=== PATIENT | male | born 2000 | race Caucasian/White ===

== ENCOUNTER 2022-05-07 16:34 | Emergency (ER) | payer OTHER, SELFPAY ==
[2022-05-07 16:41] VITALS: BP 145/83; PULSE 99; RESP 16; TEMP 37.7; O2SAT 99
--- NOTE | 2022-05-07 19:25 | ED.URI ---
HPI - URI/Sore Throat General Chief Complaint: Upper Respiratory Infection Stated Complaint: Throat cough headache Time Seen by Provider: 05/07/22 19:25 Source: patient, RN notes reviewed and old records reviewed Mode of arrival: ambulatory Limitations: no limitations History of Present Illness HPI Narrative: 21 ear old male presents to [facility] with complaints of 4 day history of headache, sore throat,cough with some yellowish brownish phlegm at times, and low-grade fever. Patient reports that he has had COVID vaccinations X3, and flu shot, Patient reports that he was seen 3-4 weeks ago at [facility] urgent care and received steroid with negative strep at that time which did help his symptoms till past 4 days. He has taken Juan Jose RIOJAS elicited complaint: cough and sore throat Related Data Home Medications Medication Instructions Recorded Confirmed bupropion HCl 200 mg tablet,12 hr 200 mg PO BID 05/07/22 05/07/22 sustained-release dextroamphetamine-amphetamine ER 20 mg PO BID 05/07/22 05/07/22 20 mg 24hr capsule,extend release (Adderall XR) quetiapine 25 mg tablet 12.5 mg PO HS 05/07/22 05/07/22 Allergies Allergy/AdvReac Type Severity Reaction Status Date / Time No Known Allergies Allergy Verified 05/07/22 18:03 Review of Systems Review of Systems: CONSTITUTIONAL: Denies malaise, chills, sweats, or fever. EYES: Denies visual changes, redness, or discharge ENT: Reports rhinorrhea, congestion, sinus pain, no otalgia positive for sore throat. CARDIOVASCULAR: Denies chest pain, palpitations, or edema. RESPIRATORY: Reports cough.? Denies dyspnea. GASTROINTESTINAL: Denies abdominal pain, nausea, vomiting, diarrhea SKIN: Denies rash or itching. MUSCULOSKELETAL: Denies myalgia. NEUROLOGIC:Reports headache. All systems reviewed & are unremarkable except as noted in HPI and below PMFSH Past Medical History Medical History (Updated 05/11/22 @ 11:56 by Evelyn Lopez NP) ADHD (attention deficit hyperactivity disorder) Anxiety and depression Asthma as child Pre-diabetes Surgical History Surgical History (Updated 05/11/22 @ 11:50 by Evelyn Lopez NP) Hx of tonsillectomy S/P wisdom tooth extraction Social History Social History (Updated 05/11/22 @ 11:51 by Evelyn Lopez NP) Smoking status: Never smoker Alcohol intake: unknown Substance use type: does not use Gender identity (if verbalized by the patient): Male Comments At time of signature, agree with nursing past medical, surgical, social and family history. There is no relevant family history pertinent to the presenting complaint Exam Narrative: GENERAL: Well-appearing, well-nourished, and in no acute distress. HEAD: Normocephalic EYES: PERRLA, conjunctivae clear ENT: Nares clear, turbinates edematous and erythematous, clear discharge. Mucous membranes moist. TM pearly walter with dull light reflex bilaterally; no tragal tenderness. Oropharynx erythematous without lesions. Tonsils not present and throat without exudate, no drooling, no hoarseness, no trismus, uvula midline.post nasal drainage noted NECK: Supple. No lymphadenopathy CHEST: Clear to auscultation, breath sounds equal. No wheezing, rhonchi, rales, or stridor. No respiratory distress, speaks in full sentences.productive cough yellowish to brown phelgm, SAO2 99% on room air HEART: Regular rate and rhythm. No murmur heard. SKIN: Warm, dry, no rash. NEURO: Alert and oriented x3. PSYCH: Normal mood and affect Course Course Emergency Course: Patient is aware of diagnosis, understands and agrees to treatment plan.? Anticipatory guidance given.? Patient agrees to follow-up as directed and is aware of reasons to seek care at the emergency department. Portions of this record may have been created with voice recognition software Level of Care: Express Care Visit Vital Signs Vital signs: Vital Signs Temperature 37.7 C H 05/07/22 16:41 P
== END 2022-05-07 20:01 | disposition home or self-care (01) ==
PROVIDERS: Emergency Provider Registered Nurse; PCP Physician Assistant
DX: J02.9 Acute pharyngitis, unspecified (principal); R05.9 Cough, unspecified
CPT/HCPCS: 87081; 87804; 99213; G0463

== ENCOUNTER 2024-04-13 12:41 | Emergency (ER) | payer OTHER, SELFPAY ==
--- NOTE | ~2024-04-13 | XR_ITS ---
EXAMINATION: XR chest 2V 04/13/2024 13:53 INDICATION: Productive cough PROCEDURE: 2 view chest COMPARISON: No prior studies for comparison. FINDINGS: The lungs are clear. The cardiomediastinal silhouette is within normal limits. There are no pleural effusions. There is no pneumothorax suspected. IMPRESSION: 1: NO ACUTE CARDIOPULMONARY DISEASE. Reviewed, dictated and finalized at location B. VE SETTER SAF[employer]Y STITCH
[2024-04-13 12:48] VITALS: BP 144/75; PULSE 85; RESP 16; TEMP 37.4; O2SAT 100
[2024-04-13 12:53] VITALS: BP 144/75; PULSE 85; RESP 16; TEMP 37.4; O2SAT 100
--- NOTE | 2024-04-13 13:13 | ED_ITS ---
HPI - URI/Sore Throat General Chief Complaint: Upper Respiratory Infection Stated Complaint: Sore Throat Time Seen by Provider: 04/13/24 13:14 Source: patient, RN notes reviewed and old records reviewed Mode of arrival: ambulatory Limitations: no limitations History of Present Illness HPI Narrative: 23-year-old male to Express Care with complaint sore throat, runny nose, productive cough with odd tasting phlegm. Patient reports that his sister is currently Being treated for pneumonia. Patient denies fever, difficulty swallowing, shortness of breath, chest pain, allergies, pertinent medical history. Patient able to tolerate fluids by mouth. Patient resting comfortably in exam room in no acute distress. Related Data Home Medications Medication Instructions Recorded Confirmed fluticasone propionate 50 intranasal 04/13/24 mcg/actuation nasal spray,suspension lamotrigine 200 mg tablet mg 04/13/24 methylphenidate HCl 54 mg mg PO 04/13/24 tablet,extended release 24 hr (Concerta) propranolol 60 mg capsule,24 mg PO 04/13/24 hr,extended release Allergies Allergy/AdvReac Type Severity Reaction Status Date / Time No Known Allergies Allergy Verified 04/13/24 12:52 Review of Systems Review of Systems: All systems reviewed & are unremarkable except as noted in HPI and below Constitutional: Constitutional: Reports no additional constitutional complaints Eyes: Eyes: Reports no additional eye complaints ENT: Reports as per HPI, Reports nasal discharge and Reports sore throat Cardiovascular: Cardiovascular: Reports no additional cardiovascular complaints, Denies chest pain and Denies dyspnea Respiratory: Respiratory: Reports no additional respiratory complaints, Reports cough and Denies dyspnea Musculoskeletal: Musculoskeletal: Reports no additional musculoskeletal complaints Neurologic: Reports system reviewed and no additional complaints, except as documented Psychiatric: Psychiatric: Reports no additional psychiatric complaints [facility] Past Medical History Medical History ADHD (attention deficit hyperactivity disorder) Anxiety and depression Asthma as child Pre-diabetes Surgical History Surgical History Hx of tonsillectomy S/P wisdom tooth extraction Social History Social History Smoking status: Never smoker Alcohol intake: unknown Substance use type: does not use Living arrangements: with family Gender identity (if verbalized by the patient): Male Comments At the time of my signature, I reviewed and agree with the nursing past medical, surgical, social, and family history. There is no relevant family history pertinent to the patient complaint. Exam Const: General: cooperative, healthy appearing, no acute distress, alert, tired appearing and well nourished Nutritional Appearance: well nourished Orientation/consciousness: patient oriented x3 Limitations: no limitations HENMT: Head: normal to inspection Ears: external ears normal and TM abnormal bulging on the left, erythematous on the left, with fluid behind the TM on the left and with loss of landmarks on the left Face/Nose/Sinus: Normal external nose present, Normal nares present, normal facial exam, No erythema and No edema Face and sinus: normal facial exam, no erythema and no edema Mouth: Yes Normal oral and palatal mucosa present Throat: posterior oropharynx abnormal erythema and postnasal drainage Eyes: General: appearance normal, both eyes and all related structures Neck: Neck: normal visual inspection, full ROM and no meningeal signs Lymphatic: no lymphadenopathy noted and no lymphedema noted Chest: Chest palpation & inspection: normal inspection of the chest Resp: Effort & Inspection: normal respiratory effort and able to speak in complete sentences Auscultation: clear to auscultation bilaterally Cardio: Jugular venous distension: no JVD Rate: regular rate Rhythm: regular rhythm Back/Spine/Pelvis: Cervical Spine: cervical ROM normal Skin: General skin exam: normal color, no rashes or lesions noted and turgor normal Neuro: General: patient oriented x3, gait normal, moves all extremities and no meningeal signs Speech: normal speech Gait exam (Neuro): Normal gait present Extrem: General: normal to inspection, full ROM and capillary refill normal Psych: Appearance: grossly normal and well kempt Course Course Emergency Course: Some parts of this dictation were generated by voice recognition software and may contain typographical and/or grammatical inaccuracies. Level of Care: Express Care Visit Vital Signs Vital signs: Vital Signs Temperature 37.4 C 04/13/24 12:48 Pulse Rate 85 04/13/24 12:48 Respiratory Rate 16 04/13/24 12:48 Blood Pressure 144/75 H 04/13/24 12:48 Pulse Oximetry 100 04/13/24 12:48 Oxygen Delivery Room Air 04/13/24 12:48 Temperature 37.4 C 04/13/24 12:53 Pulse Rate 85 04/13/24 12:53 Respiratory Rate 16 04/13/24 12:53 Blood Pressure 144/75 H 04/13/24 12:53 Pulse Oximetry 100 04/13/24 12:53 Oxygen Delivery Room Air 04/13/24 12:53 reviewed MDM - URI/Sore Throat MDM Narrative Medical decision making narrative: 23-year-old male to Express Care with complaint sore throat, runny nose, productive cough with odd tasting phlegm. Patient reports that his sister is currently Being treated for pneumonia. Patient denies fever, difficulty swallowing, shortness of breath, chest pain, allergies, pertinent medical history. Patient able to tolerate fluids by mouth. Patient resting comfortably in exam room in no acute distress. On exam, left TM erythematous, bulging with fluid, loss of landmarks. Posterior oropharynx erythematous with postnasal drainage. Findings consistent with left otitis media. Patient negative COVID, flu, strep clinic. Culture sent for strep. Patient is sitting comfortably in exam room nontoxic in appearance. Patient appropriate for outpatient treatment and follow-up. Discharge instructions reviewed with patient, as well as provided in writing per nursing staff. The instructions also include specific and strict return/GO TO THE ER as well as f/u information. All questions have been answered, and the patient deny any further questions with discharge and discharge plan. Some parts of this dictation were generated by voice recognition software and may contain typographical and/or grammatical inaccuracies. Differential Diagnosis Differential diagnosis: Likely upper respiratory infection, croup, otitis media, sinusitis, viral infection, bronchitis, influenza and pharyngitis Lab Data Labs: Lab Results 04/13/24 Range/Units 13:20 POC Influenza A Ag Negative (Negative) POC Influenza B Ag Negative (Negative) POC SARS CoV-2 Ag Negative (Negative) POC Grp A Strep Screen Negative (Negative) Discharge Plan Discharge Clinical Impression: Acute left otitis media Patient Disposition: Home, Self-Care Condition: Stable Instructions: Ear Infection (GEN) Prescriptions: New amoxicillin 875 mg tablet 875 mg PO Q12H Qty: 20 0RF No Action lamotrigine 200 mg tablet propranolol 60 mg capsule,extended release 24 hr PO methylphenidate HCl [Concerta] 54 mg tablet extended release 24hr PO fluticasone propionate 50 mcg/actuation spray,suspension INTRANASAL Follow-up/Referrals: Shereen,BARBARA Daniels [Primary Care Provider] - Stand Alone Forms: Work/School Release IP
[2024-04-13 13:22] LABS: EDCOVIDSCREEN Negative (Negative); EDINFLUASCREEN Negative (Negative); EDINFLUBSCREEN Negative (Negative); EDSTREPNEGPOS1 Negative (Negative)
== END 2024-04-13 14:56 | disposition home or self-care (01) ==
PROVIDERS: Emergency Provider Nurse Practitioner Family; PCP Physician Assistant
DX: H66.92 Otitis media, unspecified, left ear (principal); Z20.822 Contact with and (suspected) exposure to COVID-19
CPT/HCPCS: 71046; 87081; 87426; 87804; 87880; 99213; G0463

== ENCOUNTER 2025-05-03 11:16 | Emergency (ER) | payer OTHER, MEDICAID, SELFPAY ==
--- OUTSIDE RECORDS SUMMARY | 2024-12-19 07:00 | XMS_ITS ---
Author Organization [facility] Address [address] [place] [address] Care Team Providers Care Machine Feeder Raw Stock Name Role Phone Steff Greene Primary Care Provider REASON FOR VISIT 3 Week F/U Social History Sex Assigned At : Social History Observation Description Sex Assigned At Male Encounters Encounter Location Date Provider Diagnosis [address] [place] [address] 12/19/2024 Steff Greene Plan Of Treatment No Information Progress Notes * COMFORTDAVONTERommelOB:2000 (24 yo M)Acc No.[id number]:12/19/2024 UNLOCKED PROGRESS NOTE Patient: Gerald SHI Provider: TSERING Chavez, RESIDENT SERVICES MANAGER, PHERESIS SPECIALIST-C :2000 A ge:24 Y S ex:Male Date:12/19/2024 Address:[address] [place], [place] [id number] Structured Data:Is there a n ajay you would prefer we call you? (Nombre que prefiere usar) : No Subjective: * Chief Complaints: * 1 . 3 Week F/U. * Medical History: Objective: * Vitals: Assessment: Plan: * Treatment: * * Electronic signature of Valentín Greene , [id number] on 05/03/2025 at 11:18 AM DATA SCIENCES DIRECTOR Sign off status: Pending * Provider: Adrienne Greene MSN, RESIDENT SERVICES MANAGER, PHERESIS SPECIALIST-C Date: 0 12/19/2024 Generated for Leela clayton/Ariadne/Amilcaritting on: 07/03/2024 11:18 AM DATA SCIENCES DIRECTOR
--- OUTSIDE RECORDS SUMMARY | 2025-01-24 10:00 | XMS_ITS ---
Author Organization [facility] Address [address] [place] [address] Care Team Providers Care Senior Electrical Controls Engineer Name Role Phone Steff Greene Primary Care Provider REASON FOR VISIT 4 week F/U Medications Medication SIG (Take, Route, Frequency, Duration) Notes Start Date End Date Status Visine Dry Eye Relief 1 % 1 drop into af fected eye as needed Ophthalmic every 4 hours; Duration: 30 days 11/05/2024 Not-Taking Propranolol HCl ER 80 MG 1 capsule Orall y Once a day; Duration: 30 days Active Topiramate 50 MG 1 tablet Orally Once a day; Duration: 30 days Active Propranolol HCl ER 80 MG TAKE 1 CAPSULE BY MOUTH DAILY; Duration: 90 Active Topiramate 50 MG TAKE 1 TABLET BY JESENIA TH DAILY; Duration: 90 Active Vyvanse 60 MG 1 capsule in the morning Orally Once a day; Duration: 14 days 01/10/2025 Active FLUoxetine HCl 40 MG 1 capsule Orally On ce a day; Duration: 30 days Active Rexulti 1 MG 1 tablet Orally Once a day; Duration: 30 days Active Social History Sex Assigned At : Social History Observation Description Sex Assigned At Male Encounters Encounter Location Date Provider Diagnosis [address] [address] 01/24/2025 Steff Greene Plan Of Treatment No Information Progress Notes * Rommel LOAIZAOB:2000 (24 yo M)Acc No.[id number]:01/24/2025 UNLOCKED PROGRESS NOTE Patient: Pérez CLEVELANDDAVONTE Gerald Provider: Adrienne Greene, MSN, AUTOMOTIVE MAINTENANCE TECHNICIAN, STAVE CUTTING SUPERVISOR-C :2000 A ge:24 Y S ex:Male Date:01/24/2025 Address:[address] [place], [place] [id number] Structured Data:Is there a n ajay you would prefer we call you? (Nombre que prefiere usar) : No Subjective: * Chief Complaints: * 1 . 4 week F/U. * Medical History: * Medications: T aking Propranolol HCl ER 80 MG Capsule Extended Release 24 Hour TAKE 1 CAPSULE BY MOUTH DAILY , Taking Topiramate 50 MG Tablet TAKE 1 TABLET BY MOUTH DAILY , Taking Propranolol HCl ER 80 MG Capsule Extended Release 24 Hour 1 capsule Orally Once a day , Taking Topiramate 50 MG Tablet 1 tablet Orally Once a day , Taking FLUoxetine HCl 40 MG Capsule 1 capsule Orally Once a day , Taking Rexulti 1 MG Tablet 1 tablet Orally Once a day , Taking Vyvanse 60 MG Capsule 1 capsule in the morning Orally Once a day , Not-Taking Visine Dry Eye Relief 1 % Solution 1 drop into affected eye as needed Ophthalmic every 4 hours Objective: * Vitals: Assessment: Plan: * Treatment: * * Electronic signature of Valentín Greene , [id number] on 05/03/2025 at 11:18 AM TRAFFIC OR SYSTEM DISPATCHER Sign off status: Pending * Provider: Adrienne Greene, MSN, ONELIA, STAVE CUTTING SUPERVISOR-C Date: 0 01/24/2025 Generated for Leela clayton/Ariadne/eTcarlasmitting on: 1 07/03/2024 11:18 AM TRAFFIC OR SYSTEM DISPATCHER
--- OUTSIDE RECORDS SUMMARY | 2025-02-06 04:20 | XMS_ITS ---
Author Organization [facility] Address [address] [place] [address] Care Team Providers Care Instructional Support Technician Name Role Phone Steff Greene Primary Care Provider [phone] REASON FOR VISIT 4 week F/U Social History Sex Assigned At : Social History Observation Description Sex Assigned At Male Encounters Encounter Location Date Provider Diagnosis [address] [place] [address] 02/06/2025 Steff Greene Plan Of Treatment No Information Progress Notes * COMFORTDAVONTERommelOB:2000 (24 yo M)Acc No.[id number]:02/06/2025 UNLOCKED PROGRESS NOTE Patient: Gerald SHI Provider: TSERING Chavez, CENTRAL LAB TECHNICIAN, EXCEPTIONAL STUDENT EDUCATION AIDE-C :2000 A ge:24 Y S ex:Male Date:02/06/2025 Address:[address] [place], [place] [id number] Structured Data:Is there a n ajay you would prefer we call you? (Nombre que prefiere usar) : No Subjective: * Chief Complaints: * 1 . 4 week F/U. * Medical History: Objective: * Vitals: Assessment: Plan: * Treatment: * * Electronic signature of Valentín Greene , [id number] on 05/03/2025 at 11:18 AM SHED BOSS Sign off status: Pending * Provider: Adrienne Greene MSN, CENTRAL LAB TECHNICIAN, EXCEPTIONAL STUDENT EDUCATION AIDE-C Date: 0 02/06/2025 Generated for Leela clayton/Ariadne/Amilcaritting on: 07/03/2024 11:18 AM SHED BOSS
--- OUTSIDE RECORDS SUMMARY | 2025-02-28 07:00 | XMS_ITS ---
Author Organization [facility] Address [address] [place] [address] Care Team Providers Care Hot Mill Operator Name Role Phone Steff Greene Primary Care Provider REASON FOR VISIT 3 Week F/U Medications Medication SIG (Take, Route, Frequency, Duration) Notes Start Date End Date Status Rexulti 2 MG 1 tablet Orally Once a day; Duration: 30 days Active Vyvanse 70 MG 1 capsule in the mor flory Orally Once a day; Duration: 30 days 01/30/2025 Active Propranolol HCl ER 80 MG TAKE 1 CAPSULE BY MOUTH DAILY; Duration: 90 Active Methylphenidate HCl 10 MG 1 tablet on em pty stomach Orally Once a day; Duration: 30 days 01/30/2025 Active Topiramate 50 MG TAKE 1 TABLET BY JESENIA TH DAILY; Duration: 90 Active Social History Sex Assigned At : Social History Observation Description Sex Assigned At Male Encounters Encounter Location Date Provider Diagnosis [address] [place] [address] 02/28/2025 Steff Greene Plan Of Treatment No Information Progress Notes * Rommel LOAIZAOB:2000 (24 yo M)Acc No.[id number]:02/28/2025 UNLOCKED PROGRESS NOTE Patient: Gerald SHI Provider: Adrienne Greene, MSN, PAINT STRIPPER, REVENUE CYCLE ADMINISTRATOR-C :2000 A ge:24 Y S ex:Male Date:02/28/2025 Address:[address] [place], [place] Structured Data:Is there a n ajay you would prefer we call you? ([facility]) : No Subjective: * Chief Complaints: * 1 . 3 Week F/U. * Medical History: * Medications: T aking Rexulti 2 MG Tablet 1 tablet Orally Once a day , Taking Vyvanse 70 MG Capsule 1 capsule in the morning Orally Once a day , Taking Methylphenidate HCl 10 MG Tablet 1 tablet on empty stomach Orally Once a day , Taking Topiramate 50 MG Tablet TAKE 1 TABLET BY MOUTH DAILY , Taking Propranolol HCl ER 80 MG Capsule Extended Release 24 Hour TAKE 1 CAPSULE BY MOUTH DAILY Objective: * Vitals: Assessment: Plan: * Treatment: * * Electronic signature of Valentín Greene , [id number] on 05/03/2025 at 11:18 AM FISHING ROD TRIMMER Sign off status: Pending * Provider: Adrienne Greene, MSN, PAINT STRIPPER, REVENUE CYCLE ADMINISTRATOR-C Date: 0 02/28/2025 Generated for Leela clayton/Ariadne/Reji on: 1 07/03/2024 11:18 AM FISHING ROD TRIMMER
--- OUTSIDE RECORDS SUMMARY | 2025-05-03 11:19 | XMS_ITS | Patient Health Record ---
Author Organization [facility] Address [address] [place] [address] Care Team Providers Care Clinical Trial Manager Name Role Phone Steff Greene Primary Care Provider Allergies No Known Allergies Reason For Referral Reason Therapy Diagnosis 1 Depressed (F32.9) Diagnosis 2 Anxiety (F41.9) Diagnosis 3 ADHD (attention defi cit hyperactivity disorder) (F90.9) Referral Organization [facility]ly [facility] Referring Provider First Name Steff Referring Provider Last Name Jc Referring Provider Speciality Psychiatry Referred Provider Specialty [facility] General Notes Steff Greene 04:34:14 PM > States he would like to begin therapy. Having depression, anxiety. Has ADHD. Also working nights as a nurse. Please refer. Clinical Notes Mary Garcia 05/01/2025 11:14:07 AM >HN called the client and left a VM for the client to call back. Referral Priority Routine Medications Medication SIG (Take, Route, Frequency, Duration) Notes Start Date End Date Status Vyvanse 70 MG 1 capsule in the morning Orally Once a day; Duration: 30 days 04/29/2025 Active Rexulti 2 MG 1 tablet Orally Once a day; Duration: 30 days Active Topiramate 50 MG TAKE 1 TABLET BY DAILY; Duration: 90 Active Vilazodone HCl 10 MG 1 tablet with food Orally Once a day; Duration: 30 days 04/29/2025 Active cloNIDine HCl ER 0.1 MG TAKE 1 TABLET BY MOUTH AT BEDTIME FOR 1 WEEK. INCREASE TO 2 TIMES DAILY BY MOUTH DAILY; Duration: 90 Active buPROPion HCl ER (XL) 300 MG 1 tablet in the morning Orally Once a day; Duration: 30 days Active cloNIDine HCl ER 0.1 MG two in the morni ng and one at night Orally; Duration: 30 days Active Methylphenidate HCl 10 MG 1 tablet on em pty stomach Orally Once a day; Duration: 30 days 04/29/2025 Active Social History Tobacco Use: Social History Observation Description Date Details (start date - stop date) Never Smoker NA - NA Sex Assigned At : Social History Observation Description Sex Assigned At Male Dont use, Tobacco Use/Smoking Question Answer Notes Are you a nonsmoker Tobacco Control (Standard) Question Answer Notes Additional Findings: Tobacco non-user Cu rrent nonsmoker,Nonsmoker for personal reasons Tobacco use: Nonsmoker Section Notes: [id number] 08/27/2022 08/27/2022 Amphet Asp/amphet/d-amphet 60.0 30 20 MG NA Saman Regan Pa-c - [id number] [facility] [place], [place] 1 [id number] 04/27/2022 04/27/2022 Amphet Asp/amphet/d-amphet 60.0 30 20 MG NA Saman Regan Pa-c - [id number] [facility] [place] 1 [id number] 01/14/2023 01/14/2023 Lisdexamfetamine Dimesylate 30.0 30 20 MG Maude Virgen Fnp-bc - [id number] [facility] [place] 1 [id number] 08/27/2022 08/27/2022 Amphet Asp/amphet/d-amphet 60.0 30 20 MG NA Saman Regan Pa-c - [id number] [facility] [place] 1 [id number] 04/27/2022 04/27/2022 Amphet Asp/amphet/d-amphet 60.0 30 20 MG NA Saman Regan Pa-c - [id number] [facility] [place] 1 [id number] 01/14/2023 01/14/2023 Lisdexamfetamine Dimesylate 30.0 30 20 MG Maude Virgen Fnp-bc - [id number] [place], [place] NA 0 [place] 1 [id number] 08/27/2022 08/27/2022 Amphet Asp/amphet/d-amphet 60.0 30 20 MG NA Saman Regan Pa-c - [id number] [place], [place] NA 0 [place] 1 [id number] 04/27/2022 04/27/2022 Amphet Asp/amphet/d-amphet 60.0 30 20 MG NA Saman Regan Pa-c - [id number] [place], [place] 0 [place] 1 [id number] 01/14/2023 01/14/2023 Lisdexamfetamine Dimesylate 30.0 30 20 MG NA Maude Shah [employer] - [id number] [place], [place] 0 [place] 1 [id number] 08/27/2022 08/27/2022 Amphet Asp/amphet/d-amphet 60.0 30 20 MG NA Saman Regan Pa-c - [id number] [place], [place] 1 [id number] 04/27/2022 04/27/2022 Amphet Asp/amphet/d-amphet 60.0 30 20 MG NA Saman Regan Pa-c - [id number] [place], [place] 1 [id number] 01/14/2023 01/14/2023 Lisdexamfetamine Dimesylate 30.0 30 20 MG NA Maude Shah [employer] - [id number] [place], [place] 1 [id number] 08/27/2022 08/27/2022 Amphet Asp/amphet/d-amphet 60.0 30 20 MG NA Saman Regan Pa-c - [id number] [place], [place] 1 [id number] 04/27/2022 04/27/2022 Amphet Asp/amphet/d-amphet 60.0 30 20 MG NA Saman Regan Pa-c [id number] [place], [place] 1 [id number] 01/14/2023 01/14/2023 Lisdexamfetamine Dimesylate 30.0 30 20 MG NA Maude Shah Fnp-bc - [id number] [facility] [place] 1 [id number] 08/27/2022 08/27/2022 Amphet Asp/amphet/d-amphet 60.0 30 20 MG NA Saman Regan Pa-c [id number] [facility] [place] 1 [id number] 04/27/2022 04/27/2022 Amphet Asp/amphet/d-amphet 60.0 30 20 MG NA Saman Regan Pa-c [id number] [facility] [place] 1 [id number] 01/14/2023 01/14/2023 Lisdexamfetamine Dimesylate 30.0 30 20 MG NA Maude Shah Fnp-bc - [id number] [facility] [place] 1 [id number] 08/27/2022 08/27/2022 Amphet Asp/amphet/d-amphet 60.0 30 20 MG NA Saman Regan Pa-c [id number] [facility] [place] 1 [id number] 04/27/2022 04/27/2022 Amphet Asp/amphet/d-amphet 60.0 30 20 MG Saman Toro Pa-c - [id number] [facility] [place] 1 [id number] 01/14/2023 01/14/2023 Lisdexamfetamine Dimesylate 30.0 30 20 MG NA Maude Shah Fnp-bc - [id number] [facility] [place] 1 [id number] 08/27/2022 08/27/2022 Amphet Asp/amphet/d-amphet 60.0 30 20 MG NA Saman Regan Pa-c - [id number] [facility] [place] 1 [id number] 04/27/2022 04/27/2022 Amphet Asp/amphet/d-amphet 60.0 30 20 MG NA Saman Regan Pa-c - [id number] [place] 1 [id number] 01/14/2023 01/14/2023 Lisdexamfetamine Dimesylate 30.0 30 20 MG NA Maude Shah Fnp-bc - [id number] [place] 1 [id number] 08/27/2022 08/27/2022 Amphet Asp/amphet/d-amphet 60.0 30 20 MG NA Saman Regan Pa-c [id number] [facility] [place] 1 [id number] 04/27/2022 04/27/2022 Amphet Asp/amphet/d-amphet 60.0 30 20 MG NA Saman Regan Pa-c [id number] [facility] [place] 1 [id number] 01/14/2023 01/14/2023 Lisdexamfetamine Dimesylate 30.0 30 20 MG NA Maude Shah Fnp-bc - [id number] [facility] [place] 1 [id number] 08/27/2022 08/27/2022 Amphet Asp/amphet/d-amphet 60.0 30 20 MG NA Saman Regan Pa-c - [id number] [facility] [place] 1 [id number] 04/27/2022 04/27/2022 Amphet Asp/amphet/d-amphet 60.0 30 20 MG NA Saman Regan Pa-c - [id number] [facility] [place] 1 [id number] 01/14/2023 01/14/2023 Lisdexamfetamine Dimesylate 30.0 30 20 MG NA Maude Shah Fnp-bc - [id number] [facility] [place] 1 [id number] 08/27/2022 08/27/2022 Amphet Asp/amphet/d-amphet 60.0 30 20 MG NA Saman Regan Pa-c - [id number] [place], [place] 0 [place] 1 [id number] 04/27/2022 04/27/2022 Amphet Asp/amphet/d-amphet 60.0 30 20 MG NA Saman Regan Pa-c - [id number] [place], [place] 0 [place] 1 [id number] 01/14/2023 01/14/2023 Lisdexamfetamine Dimesylate 30.0 30 20 MG NA Maude Shah Fnp-bc - [id number] [place], [place] 0 [place] 1 [id number] 08/27/2022 08/27/2022 Amphet Asp/amphet/d-amphet 60.0 30 20 MG NA Saman Regan Pa-c - [id number] [place], [place] 0 [place] 1 [id number] 04/27/2022 04/27/2022 Amphet Asp/amphet/d-amphet 60.0 30 20 MG NA Saman Regan Pa-c - [id number] [place], [place] 1 [id number] 01/14/2023 01/14/2023 Lisdexamfetamine Dimesylate 30.0 30 20 MG NA Maude Shah [employer] - [id number] [place], [place] 0 [place] 1 [id number] 08/27/2022 08/27/2022 Amphet Asp/amphet/d-amphet 60.0 30 20 MG NA Saman Regan Pa-c - [id number] [place], [place] 0 [place] 1 [id number] 04/27/2022 04/27/2022 Amphet Asp/amphet/d-amphet 60.0 30 20 MG NA Saman Regan Pa-c - [id number] [place], [place] 1 [id number] 01/14/2023 01/14/2023 Lisdexamfetamine Dimesylate 30.0 30 20 MG NA Maude Shah [employer] - [id number] [facility] [place] 1 [id number] 08/27/2022 08/27/2022 Amphet Asp/amphet/d-amphet 60.0 30 20 MG NA Saman Regan-c - [id number] [facility] 1 [id number] 04/27/2022 04/27/2022 Amphet Asp/amphet/d-amphet 60.0 30 20 MG NA Saman Regan-c - [id number] [facility] [place] 1 [id number] 01/14/2023 01/14/2023 Lisdexamfetamine Dimesylate 30.0 30 20 MG NA Maude Shah [employer] - [id number] [facility] [place] 1 [id number] 08/27/2022 08/27/2022 Amphet Asp/amphet/d-amphet 60.0 30 20 MG NA Saman Regan-en - [id number] [facility] 1 [id number] 04/27/2022 04/27/2022 Amphet Asp/amphet/d-amphet 60.0 30 20 MG NA Saman Regan-en - [id number] [facility] 1 [id number] 08/27/2022 08/27/2022 Amphet Asp/amphet/d-amphet 60.0 30 20 MG NA Saman Regan-c - [id number] [facility] 1 [id number] 04/27/2022 04/27/2022 Amphet Asp/amphet/d-amphet 60.0 30 20 MG NA Saman Regan-c - [id number] [facility] 1 [id number] 01/14/2023 01/14/2023 Lisdexamfetamine Dimesylate 30.0 30 20 MG NA Maude Shah [employer] - [id number] [facility] 1 [id number] 08/27/2022 08/27/2022 Amphet Asp/amphet/d-amphet 60.0 30 20 MG NA Saman Regan Pa-c - [id number] [facility] 1 [id number] 04/27/2022 04/27/2022 Amphet Asp/amphet/d-amphet 60.0 30 20 MG NA Saman Regan Pa-c - [id number] [facility] 1 [id number] 01/14/2023 01/14/2023 Lisdexamfetamine Dimesylate 30.0 30 20 MG NA Maude Shah [employer] - [id number] [place] 1 Problems Problem Type SNOMED Code ICD Code Onset Dates Problem Status W/U Status Risk Notes Problem Anxiety (53251027) Anxiety (F41.9) Active confirmed Problem Attention deficit hyperactivity disorder (053807963) ADHD (attention deficit hyperactivity disorder) (F90.9) Active confirmed Problem Overweight (894611097) Over weight (E66.3) Active confirmed Problem Depressed (20093822) Depressed (F32.9) Active confirmed Likely bipolar depression Problem Drug monitoring done (575637907) Therapeutic drug monitoring (Z51.81) Active confirmed Vital Signs Heart Rate 63 /min 03/18/2025 Temperature 97.2 degrees Fahrenheit 03/18/2025 Respiratory Rate 16 /min 03/18/2025 Blood pressure diastolic 84 mm Hg 03/18/2025 Oximetry 99 % 03/18/2025 Height 71 inches in 04/11/2025 Blood pressure systolic 108 mm Hg 03/18/2025 Weight 247.2 lbs lbs 03/18/2025 BMI 34.47 kg/m2 03/18/2025 Encounters Encounter Location Date Provider Diagnosis [address] [place] [address] 05/23/2024 Steff Greene Depressed F32.9 ; Nutritional counseling Z71.3 ; Anxiety F41.9 and ADHD (attention deficit hyperactivity disorder) F90.[address] [address] 06/20/2024 Steff Greene Depressed F32.9 ; Nutritional counseling Z71.3 ; Anxiety F41.9 ; ADHD (attention deficit hyperactivity disorder) F90.9 ; Fatigue R53.83 and Medication monitoring encounter Z51.[address] [address] 07/18/2024 Steffkhadar Greene Depressed F32.9 ; Nutritional counseling Z71.3 ; Anxiety F41.9 ; ADHD (attention deficit hyperactivity disorder) F90.9 ; Fatigue R53.83 and Medication monitoring encounter Z51.[address] [address] 08/15/2024 Steff Greene Depressed F32.9 ; Anxiety F41.9 ; ADHD (attention deficit hyperactivity disorder) F90.9 and Medication monitoring encounter Z51.[address] [address] 09/12/2024 Steff Greene Anxiety F41.9 ; Depressed F32.9 ; ADHD (attention deficit hyperactivity disorder) F90.9 and Medication monitoring encounter Z51.[address] [address] 10/11/2024 Steff Greene Anxiety F41.9 ; Depressed F32.9 ; ADHD (attention deficit hyperactivity disorder) F90.9 and Medication monitoring encounter Z51.[address] [address] 11/05/2024 Steffkhadar Greene Over weight E66.3 ; Anxiety F41.9 ; Depressed F32.9 ; ADHD (attention deficit hyperactivity disorder) F90.9 and Medication monitoring encounter Z51.[address] [address] 11/21/2024 Steffkhadar Greene Over weight E66.3 ; Anxiety F41.9 ; Depressed F32.9 ; ADHD (attention deficit hyperactivity disorder) F90.9 and Medication monitoring encounter Z51.[address] [address] 12/25/2024 Steff Jc Over weight E66.3 ; Anxiety F41.9 ; Depressed F32.9 ; ADHD (attention deficit hyperactivity disorder) F90.9 and Medication monitoring encounter Z51.[address] [address] 01/30/2025 Steff Jc Over weight E66.3 ; Anxiety F41.9 ; Depressed F32.9 ; ADHD (attention deficit hyperactivity disorder) F90.9 and Medication monitoring encounter Z51.[address] [address] 03/18/2025 Steff Jc Over weight E66.3 ; Anxiety F41.9 ; Depressed F32.9 ; ADHD (attention deficit hyperactivity disorder) F90.9 and Medication monitoring encounter Z51.[address] [address] 04/11/2025 Steff Jc Over weight E66.3 ; Anxiety F41.9 ; Depressed F32.9 ; ADHD (attention deficit hyperactivity disorder) F90.9 and Medication monitoring encounter Z51.[address] [address] 04/29/2025 Steff Jc Over weight E66.3 ; Anxiety F41.9 ; Depressed F32.9 ; ADHD (attention deficit hyperactivity disorder) F90.9 and Medication monitoring encounter Z51.81 [facility] [address] [address] 07/24/2024 Steff Jc ADHD (attention deficit hyperactivity disorder) F90.[address] [address] 10/19/2024 Steff Jc [address] [address] 12/19/2024 Steff Greene Depressed F32.9 ; Anxiety F41.9 and ADHD (attention deficit hyperactivity disorder) F90.[address] [address] 12/20/2024 Steff Greene [address] [address] 01/07/2025 Steff Greene ADHD (attention deficit hyperactivity disorder) F90.9 [facility] [address] [place] [address] 01/10/2025 Steff Greene ADHD (attention deficit hyperactivity disorder) F90.[address] [address] 02/28/2025 Steff Greene ADHD (attention deficit hyperactivity disorder) F90.9 and Depressed F32.[address] [address] 04/01/2025 Steff Greene [address] [address] 08/06/2024 Steff Greene Assessments Encounter Date Diagnosis (ICD Code) Assessment Notes Treatment Notes Treatment Clinical Notes Section Notes 05/23/2024 Depressed (ICD-10 - F32.9) Likely bipolar depression Emotional blunting at 200mg lamotrigine, decrease to 150mg with mild improvement, decreasing to 100mg. Discussed georgina risk with serotonergic properties, continue fluoxetine at this time. May discuss SGA as hx of doing better with Vraylar but SE of akathisia. May look to Vraylar with slow-start to medication, latuda, caplyta if needed. Starting fluoxetine, may change to venlafaxine if poor efficacy. 06/20/2024 Depressed (ICD-10 - F32.9) Likely bipolar depression Emotional blunting at 200mg lamotrigine, decrease to 100 with mild improvement. Discussed georgina risk with serotonergic properties, increasing fluoxetine for s/s of depression. May discuss SGA as hx of doing better with Vraylar but SE of akathisia. May look to Vraylar with slow-start to medication, latuda, caplyta if needed. Starting fluoxetine, may change to venlafaxine if poor efficacy. 06/20/2024 Nutritional counseling (ICD-10 - Z71.3) 07/24/2024 ADHD (attention deficit hyperactivity disorder) (ICD-10 - F90.9) 08/15/2024 Anxiety (ICD-10 - F41.9) Reports improvement with propranolol ER, continue Hx of doing well with buspirone, restarting Hydroxyzine with fatigue, stopping 08/15/2024 Depressed (ICD-10 - F32.9) Likely bipolar depression Emotional blunting at 200mg lamotrigine, decrease to 100 with mild improvement, continue No improvement with addition and increase of fluoxetine, planning to stop Continue lurasidone/Latuda. Take as prescribed. Take with largest meal of the day - at least 350 calories. Reviewed purpose (mood stability), benefits, and risks - low blood pressure, metabolic syndrome with high cholesterol or high blood sugars, change in cardiac conduction, nausea, vomiting, temporary or permanent movement disorders, and akathisia. Hx of doing better with Vraylar but SE of akathisia. May look to rexulti caplyta 09/12/2024 Anxiety (ICD-10 - F41.9) Reports improvement with propranolol ER, continue Hx of doing well with buspirone Hydroxyzine with fatigue. 07/18/2024 Depressed (ICD-10 - F32.9) Likely bipolar depression Emotional blunting at 200mg lamotrigine, decrease to 100 with mild improvement, continue No improvement with addition and increase of fluoxetine, decreasing and likely will stop Begin lurasidone/Latuda. Take as prescribed. Take with largest meal of the day - at least 350 calories. Reviewed purpose (mood stability), benefits, and risks - low blood pressure, metabolic syndrome with high cholesterol or high blood sugars, change in cardiac conduction, nausea, vomiting, temporary or permanent movement disorders, and akathisia. Hx of doing better with Vraylar but SE of akathisia. May look to rexulti, caplyta 10/11/2024 Anxiety (ICD-10 - F41.9) Reports improvement with propranolol ER, increase States buspirone- forget to take more than once daily, stopping this medication. Hydroxyzine with fatigue. 11/05/2024 Over weight (ICD-10 - E66.3) 11/21/2024 Over weight (ICD-10 - E66.3) 12/19/2024 Depressed (ICD-10 - F32.9) Likely bipolar depression 12/25/2024 Over weight (ICD-10 - E66.3) 01/07/2025 ADHD (attention deficit hyperactivity disorder) (ICD-10 - F90.9) 01/10/2025 ADHD (attention deficit hyperactivity disorder) (ICD-10 - F90.9) 02/28/2025 ADHD (attention deficit hyperactivity disorder) (ICD-10 - F90.9) 01/30/2025 Over weight (ICD-10 - E66.3) 03/18/2025 Over weight (ICD-10 - E66.3) 04/11/2025 Over weight (ICD-10 - E66.3) 04/29/2025 Over weight (ICD-10 - E66.3) 04/29/2025 Anxiety (ICD-10 - F41.9) Continue coping mechanisms, Guanfacine ER increased. Hydroxyzine with fatigue. Buspirone with poor compliance 04/11/2025 Anxiety (ICD-10 - F41.9) Continue coping mechanisms, Guanfacine ER increased. Hydroxyzine with fatigue. Buspirone with poor compliance 02/28/2025 Depressed (ICD-10 - F32.9) 03/18/2025 Anxiety (ICD-10 - F41.9) Hydroxyzine with fatigue. Buspirone with poor compliance 01/30/2025 Anxiety (ICD-10 - F41.9) Hydroxyzine with fatigue. Buspirone with poor compliance 12/19/2024 Anxiety (ICD-10 - F41.9) 12/25/2024 Anxiety (ICD-10 - F41.9) Hydroxyzine with fatigue. Buspirone with poor compliance 11/21/2024 Anxiety (ICD-10 - F41.9) Hydroxyzine with fatigue. Buspirone with poor compliance 10/11/2024 Depressed (ICD-10 - F32.9) Likely bipolar depression Emotional blunting at 200mg lamotrigine, decrease to 100 with mild improvement, continue at this time. Topamax for appetite, may look to stop lamotrigine. Possible negative aspects noted when fluoxetine stopped, restarted at 20mg every other day, increased to daily. Lurasidone with possible TD, encouraged to come in for AIMS, client states wanting to try stopping medication first. Changing to Capltya. Discussed this also has risk for TD. Take as prescribed. Reviewed purpose (mood stability), benefits, and risks - low blood pressure, metabolic syndrome with high cholesterol or high blood sugars, change in cardiac conduction, nausea, vomiting, temporary or permanent movement disorders, and akathisia. Hx of doing better with Vraylar but SE of akathisia. May look to gayle hanley 11/05/2024 Anxiety (ICD-10 - F41.9) Reports improvement with propranolol ER, increase States buspirone- forget to take more than once daily, stopping this medication. Hydroxyzine with fatigue. 07/18/2024 Nutritional counseling (ICD-10 - Z71.3) 09/12/2024 Depressed (ICD-10 - F32.9) Likely bipolar depression Emotional blunting at 200mg lamotrigine, decrease to 100 with mild improvement, continue Possible negative aspects noted when fluoxetine stopped, restarting. Topamax for appetite. May look to maximize this and decrease/stop lamotrigine. Continue lurasidone/Latuda. Take as prescribed. Take with largest meal of the day - at least 350 calories. Reviewed purpose (mood stability), benefits, and risks - low blood pressure, metabolic syndrome with high cholesterol or high blood sugars, change in cardiac conduction, nausea, vomiting, temporary or permanent movement disorders, and akathisia. Hx of doing better with Vraylar but SE of akathisia. May look to gayle hanley 08/15/2024 ADHD (attention deficit hyperactivity disorder) (ICD-10 - F90.9) PDMP checked without concerns. Pt works full-time. 05/23/2024 Nutritional counseling (ICD-10 - Z71.3) 06/20/2024 Anxiety (ICD-10 - F41.9) Reports improvement with propranolol ER, continue 05/23/2024 Anxiety (ICD-10 - F41.9) Reports improvement with propranolol ER, continue 06/20/2024 ADHD (attention deficit hyperactivity disorder) (ICD-10 - F90.9) PDMP checked without concerns. Pt works full-time. 08/15/2024 Medication monitoring encounter (ICD-10 - Z51.81) 07/18/2024 Anxiety (ICD-10 - F41.9) Reports improvement with propranolol ER, continue 09/12/2024 ADHD (attention deficit hyperactivity disorder) (ICD-10 - F90.9) PDMP checked without concerns. Pt works full-time. 11/05/2024 Depressed (ICD-10 - F32.9) Likely bipolar depression Emotional blunting at 200mg lamotrigine, decrease to 100 with mild improvement, continue at this time. Topamax for appetite, may look to stop lamotrigine. Possible negative aspects noted when fluoxetine stopped, restarted at 20mg every other day, increased to daily. Hx of Caplyta with dizziness, Seroquel with fatigue zombie feeling, Lurasidone with TD, Vraylar with TD. Take as prescribed. Reviewed purpose (mood stability), benefits, and risks - low blood pressure, metabolic syndrome with high cholesterol or high blood sugars, change in cardiac conduction, nausea, vomiting, temporary or permanent movement disorders, and akathisia. Hx of doing better with Vraylar but SE of akathisia. May look to rexulti caplyta 10/11/2024 ADHD (attention deficit hyperactivity disorder) (ICD-10 - F90.9) PDMP checked without concerns. Pt works full-time. 11/21/2024 Depressed (ICD-10 - F32.9) Likely bipolar depression Emotional blunting at 200mg lamotrigine, decrease to 100 then 50mg with improvmenet noted, stop this medication. Negative aspects noted when fluoxetine stopped, continue at this time. Hx of Caplyta with dizziness, Seroquel with fatigue zombie feeling, Lurasidone with TD, Vraylar with TD. Rexulti- Take as prescribed. Reviewed purpose (mood stability), benefits, and risks - low blood pressure, metabolic syndrome with high cholesterol or high blood sugars, change in cardiac conduction, nausea, vomiting, temporary or permanent movement disorders, and akathisia. 12/19/2024 ADHD (attention deficit hyperactivity disorder) (ICD-10 - F90.9) 12/25/2024 Depressed (ICD-10 - F32.9) Likely bipolar depression Emotional blunting at 200mg lamotrigine, decrease to 100 then 50mg with improvmenet noted, stop this medication. Negative aspects noted when fluoxetine stopped, continue at this time. Hx of Caplyta with dizziness, Seroquel with fatigue zombie feeling, Lurasidone with TD, Vraylar with TD. Rexulti- Take as prescribed. Reviewed purpose (mood stability), benefits, and risks - low blood pressure, metabolic syndrome with high cholesterol or high blood sugars, change in cardiac conduction, nausea, vomiting, temporary or permanent movement disorders, and akathisia. 03/18/2025 Depressed (ICD-10 - F32.9) Likely bipolar depression Hx of Caplyta with dizziness, Seroquel with fatigue zombie feeling, Lurasidone with TD, Vraylar with TD. Rexulti- Take as prescribed. Reviewed purpose (mood stability), benefits, and risks - low blood pressure, metabolic syndrome with high cholesterol or high blood sugars, change in cardiac conduction, nausea, vomiting, temporary or permanent movement disorders, and akathisia. possible wellbutrin if depression or fatigue continue Emotional blunting at 200mg lamotrigine, decrease to 100 then 50mg with improvmenet noted, stopped this med. 01/30/2025 Depressed (ICD-10 - F32.9) Likely bipolar depression Emotional blunting at 200mg lamotrigine, decrease to 100 then 50mg with improvmenet noted, stop this medication. Hx of Caplyta with dizziness, Seroquel with fatigue zombie feeling, Lurasidone with TD, Vraylar with TD. Rexulti- Take as prescribed. Reviewed purpose (mood stability), benefits, and risks - low blood pressure, metabolic syndrome with high cholesterol or high blood sugars, change in cardiac conduction, nausea, vomiting, temporary or permanent movement disorders, and akathisia. possible wellbutrin if depression or fatigue continue 04/11/2025 Depressed (ICD-10 - F32.9) Likely bipolar depression Hx of Caplyta with dizziness, Seroquel with fatigue zombie feeling, Lurasidone with TD, Vraylar with TD. Rexulti- Take as prescribed. Reviewed purpose (mood stability), benefits, and risks - low blood pressure, metabolic syndrome with high cholesterol or high blood sugars, change in cardiac conduction, nausea, vomiting, temporary or permanent movement disorders, and akathisia. may look to increase wellbutrin Emotional blunting at 200mg lamotrigine, decrease to 100 then 50mg with improvmenet noted, stopped this med. 04/29/2025 Depressed (ICD-10 - F32.9) Likely bipolar depression Increase wellbutrin for motivation/interest aspect of depression. Start vilazodone for depression and anxiety. Rexulti- Take as prescribed. Reviewed purpose (mood stability), benefits, and risks - low blood pressure, metabolic syndrome with high cholesterol or high blood sugars, change in cardiac conduction, nausea, vomiting, temporary or permanent movement disorders, and akathisia. Emotional blunting with lamotrigine Hx of Trintellix, wellbutrin, zoloft, prozac, buspirone all with low efficacy. Hx of Caplyta with dizziness, Seroquel with fatigue zombie feeling, Lurasidone with TD, Vraylar with TD. 04/29/2025 ADHD (attention deficit hyperactivity disorder) (ICD-10 - F90.9) PDMP checked without concerns. Increased for restlessness/motor hyperactivity and tics vs tremors. Adderall- back when I was in school I tried that, it makes me have a bit more side effects like shaky legs and dry mouth. Propranolol with improvement in anxiety but possible worsening in depression. Changing from guanfacine (may revisit) to clonidine ER regarding eye tics/twitch per client. 04/11/2025 ADHD (attention deficit hyperactivity disorder) (ICD-10 - F90.9) PDMP checked without concerns. Adderall- back when I was in school I tried that, it makes me have a bit more side effects like shaky legs and dry mouth. Propranolol with improvement in anxiety but possible worsening in depression. Changing from guanfacine (may revisit) to clonidine ER regarding eye tics/twitch per client. 03/18/2025 ADHD (attention deficit hyperactivity disorder) (ICD-10 - F90.9) PDMP checked without concerns. Start guanfacine for ADHD, anxiety, irritability, stop propranolol. Adderall- back when I was in school I tried that, it makes me have a bit more side effects like shaky legs and dry mouth. 01/30/2025 ADHD (attention deficit hyperactivity disorder) (ICD-10 - F90.9) PDMP checked without concerns. Vyvanse with dizziness but I think I was dehydrated and was painting, so I think that was why we stopped that. Adderall- back when I was in school I tried that, it makes me have a bit more side effects like shaky legs and dry mouth. 11/21/2024 ADHD (attention deficit hyperactivity disorder) (ICD-10 - F90.9) PDMP checked without concerns. Pt works full-time. Vyvanse with dizziness but I think I was dehydrated and was painting, so I think that was why we stopped that. Adderall- back when I was in school I tried that, it makes me have a bit more side effects like shaky legs and dry mouth. 12/25/2024 ADHD (attention deficit hyperactivity disorder) (ICD-10 - F90.9) PDMP checked without concerns. Vyvanse with dizziness but I think I was dehydrated and was painting, so I think that was why we stopped that. Adderall- back when I was in school I tried that, it makes me have a bit more side effects like shaky legs and dry mouth. 10/11/2024 Medication monitoring encounter (ICD-10 - Z51.81) 11/05/2024 ADHD (attention deficit hyperactivity disorder) (ICD-10 - F90.9) PDMP checked without concerns. Pt works full-time. Vyvanse with dizziness but I think I was dehydrated and was painting, so I think that was why we stopped that. Adderall- back when I was in school I tried that, it makes me have a bit more side effects like shaky legs and dry mouth. 09/12/2024 Medication monitoring encounter (ICD-10 - Z51.81) 07/18/2024 ADHD (attention deficit hyperactivity disorder) (ICD-10 - F90.9) PDMP checked without concerns. Pt works full-time. 06/20/2024 Fatigue (ICD-10 - R53.83) 05/23/2024 ADHD (attention deficit hyperactivity disorder) (ICD-10 - F90.9) PDMP checked without concerns. 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 06/20/2024 Medication monitoring encounter (ICD-10 - Z51.81) 07/18/2024 Fatigue (ICD-10 - R53.83) 11/05/2024 Medication monitoring encounter (ICD-10 - Z51.81) 12/25/2024 Medication monitoring encounter (ICD-10 - Z51.81) 11/21/2024 Medication monitoring encounter (ICD-10 - Z51.81) 01/30/2025 Medication monitoring encounter (ICD-10 - Z51.81) 03/18/2025 Medication monitoring encounter (ICD-10 - Z51.81) 04/11/2025 Medication monitoring encounter (ICD-10 - Z51.81) 04/29/2025 Medication monitoring encounter (ICD-10 - Z51.81) 07/18/2024 Medication monitoring encounter (ICD-10 - Z51.81) 05/23/2024 Other Reasons, potential benefits, potential risks, interactions and side effects of all medications were discussed. The Patient/Guardian asked appropriate questions, appeared to understand the answers, and decided to accept the treatment and continue being followed. Alternatives and expected course without treatment were reviewed. The Patient/Guardian is aware of the need to contact the office or return for an earlier appointment if any problems or concerns arise. May also contact the 24-hour crisis hotline ([facility]), refer to the closest emergency room or call 911 if new symptoms arise of existing symptoms worsen. The Patient/Guardian is aware that this would apply to symptoms like: suicidal ideation, homicidal ideation, high risk behaviors, manic symptoms, psychotic symptoms, physical symptoms, or any other symptoms that may be dangerous to self or others. Greater than 50% of time spent on coordination and counseling where psychopharmacology as well as psychotherapeutic interventions were discussed along with review of treatments in the past. Education provided concerning need for adequate hydration. Patient/Guardian verbalized understanding of education, treatment plan and follow up. This session was completed telephonically with client/parental/guard tulio consent: Unable to determine movement status, assess appearance, affect, AIMS, or vital signs. 06/20/2024 Other Reasons, potential benefits, potential risks, interactions and side effects of all medications were discussed. The Patient/Guardian asked appropriate questions, appeared to understand the answers, and decided to accept the treatment and continue being followed. Alternatives and expected course without treatment were reviewed. The Patient/Guardian is aware of the need to contact the office or return for an earlier appointment if any problems or concerns arise. May also contact the 24-hour crisis hotline ([facility]), refer to the closest emergency room or call 911 if new symptoms arise of existing symptoms worsen. The Patient/Guardian is aware that this would apply to symptoms like: suicidal ideation, homicidal ideation, high risk behaviors, manic symptoms, psychotic symptoms, physical symptoms, or any other symptoms that may be dangerous to self or others. Greater than 50% of time spent on coordination and counseling where psychopharmacology as well as psychotherapeutic interventions were discussed along with review of treatments in the past. Education provided concerning need for adequate hydration. Patient/Guardian verbalized understanding of education, treatment plan and follow up. This session was completed telephonically with client/parental/guard tulio consent: Unable to determine movement status, assess appearance, affect, AIMS, or vital signs. 07/18/2024 Other Reasons, potential benefits, potential risks, interactions and side effects of all medications were discussed. The Patient/Guardian asked appropriate questions, appeared to understand the answers, and decided to accept the treatment and continue being followed. Alternatives and expected course without treatment were reviewed. The Patient/Guardian is aware of the need to contact the office or return for an earlier appointment if any problems or concerns arise. May also contact the 24-hour crisis hotline ([facility]), refer to the closest emergency room or call 911 if new symptoms arise of existing symptoms worsen. The Patient/Guardian is aware that this would apply to symptoms like: suicidal ideation, homicidal ideation, high risk behaviors, manic symptoms, psychotic symptoms, physical symptoms, or any other symptoms that may be dangerous to self or others. Greater than 50% of time spent on coordination and counseling where psychopharmacology as well as psychotherapeutic interventions were discussed along with review of treatments in the past. Education provided concerning need for adequate hydration. Patient/Guardian verbalized understanding of education, treatment plan and follow up. This session was completed telephonically with client/parental/guard tulio consent: Unable to determine movement status, assess appearance, affect, AIMS, or vital signs. 08/15/2024 Other Reasons, potential benefits, potential risks, interactions and side effects of all medications were discussed. The Patient/Guardian asked appropriate questions, appeared to understand the answers, and decided to accept the treatment and continue being followed. Alternatives and expected course without treatment were reviewed. The Patient/Guardian is aware of the need to contact the office or return for an earlier appointment if any problems or concerns arise. May also contact the 24-hour crisis hotline ([facility]), refer to the closest emergency room or call 911 if new symptoms arise of existing symptoms worsen. The Patient/Guardian is aware that this would apply to symptoms like: suicidal ideation, homicidal ideation, high risk behaviors, manic symptoms, psychotic symptoms, physical symptoms, or any other symptoms that may be dangerous to self or others. Greater than 50% of time spent on coordination and counseling where psychopharmacology as well as psychotherapeutic interventions were discussed along with review of treatments in the past. Education provided concerning need for adequate hydration. Patient/Guardian verbalized understanding of education, treatment plan and follow up. This session was completed telephonically with client/parental/guard tulio consent: Unable to determine movement status, assess appearance, affect, AIMS, or vital signs. 09/12/2024 Other Reasons, potential benefits, potential risks, interactions and side effects of all medications were discussed. The Patient/Guardian asked appropriate questions, appeared to understand the answers, and decided to accept the treatment and continue being followed. Alternatives and expected course without treatment were reviewed. The Patient/Guardian is aware of the need to contact the office or return for an earlier appointment if any problems or concerns arise. May also contact the 24-hour crisis hotline ([facility]), refer to the closest emergency room or call 911 if new symptoms arise of existing symptoms worsen. The Patient/Guardian is aware that this would apply to symptoms like: suicidal ideation, homicidal ideation, high risk behaviors, manic symptoms, psychotic symptoms, physical symptoms, or any other symptoms that may be dangerous to self or others. Greater than 50% of time spent on coordination and counseling where psychopharmacology as well as psychotherapeutic interventions were discussed along with review of treatments in the past. Education provided concerning need for adequate hydration. Patient/Guardian verbalized understanding of education, treatment plan and follow up. This session was completed telephonically with client/parental/guard tulio consent: Unable to determine movement status, assess appearance, affect, AIMS, or vital signs. 10/11/2024 Other Reasons, potential benefits, potential risks, interactions and side effects of all medications were discussed. The Patient/Guardian asked appropriate questions, appeared to understand the answers, and decided to accept the treatment and continue being followed. Alternatives and expected course without treatment were reviewed. The Patient/Guardian is aware of the need to contact the office or return for an earlier appointment if any problems or concerns arise. May also contact the 24-hour crisis hotline ([facility]), refer to the closest emergency room or call 911 if new symptoms arise of existing symptoms worsen. The Patient/Guardian is aware that this would apply to symptoms like: suicidal ideation, homicidal ideation, high risk behaviors, manic symptoms, psychotic symptoms, physical symptoms, or any other symptoms that may be dangerous to self or others. Greater than 50% of time spent on coordination and counseling where psychopharmacology as well as psychotherapeutic interventions were discussed along with review of treatments in the past. Education provided concerning need for adequate hydration. Patient/Guardian verbalized understanding of education, treatment plan and follow up. This session was completed telephonically with client/parental/guard tulio consent: Unable to determine movement status, assess appearance, affect, AIMS, or vital signs. 11/05/2024 Other Reasons, potential benefits, potential risks, interactions and side effects of all medications were discussed. The Patient/Guardian asked appropriate questions, appeared to understand the answers, and decided to accept the treatment and continue being followed. Alternatives and expected course without treatment were reviewed. The Patient/Guardian is aware of the need to contact the office or return for an earlier appointment if any problems or concerns arise. May also contact the 24-hour crisis hotline ([facility]), refer to the closest emergency room or call 911 if new symptoms arise of existing symptoms worsen. The Patient/Guardian is aware that this would apply to symptoms like: suicidal ideation, homicidal ideation, high risk behaviors, manic symptoms, psychotic symptoms, physical symptoms, or any other symptoms that may be dangerous to self or others. Greater than 50% of time spent on coordination and counseling where psychopharmacology as well as psychotherapeutic interventions were discussed along with review of treatments in the past. Education provided concerning need for adequate hydration. Patient/Guardian verbalized understanding of education, treatment plan and follow up. 11/21/2024 Other Labs faxed to [facility] by Ysabel Deleon RN. Reasons, potential benefits, potential risks, interactions and side effects of all medications were discussed. The Patient/Guardian asked appropriate questions, appeared to understand the answers, and decided to accept the treatment and continue being followed. Alternatives and expected course without treatment were reviewed. The Patient/Guardian is aware of the need to contact the office or return for an earlier appointment if any problems or concerns arise. May also contact the 24-hour crisis hotline ([facility]), refer to the closest emergency room or call 911 if new symptoms arise of existing symptoms worsen. The Patient/Guardian is aware that this would apply to symptoms like: suicidal ideation, homicidal ideation, high risk behaviors, manic symptoms, psychotic symptoms, physical symptoms, or any other symptoms that may be dangerous to self or others. Greater than 50% of time spent on coordination and counseling where psychopharmacology as well as psychotherapeutic interventions were discussed along with review of treatments in the past. Education provided concerning need for adequate hydration. Patient/Guardian verbalized understanding of education, treatment plan and follow up. This session was completed telephonically with client/parental/guard tulio consent: Unable to determine movement status, assess appearance, affect, AIMS, or vital signs. 12/25/2024 Other Reasons, potential benefits, potential risks, interactions and side effects of all medications were discussed. The Patient/Guardian asked appropriate questions, appeared to understand the answers, and decided to accept the treatment and continue being followed. Alternatives and expected course without treatment were reviewed. The Patient/Guardian is aware of the need to contact the office or return for an earlier appointment if any problems or concerns arise. May also contact the 24-hour crisis hotline ([facility]), refer to the closest emergency room or call 911 if new symptoms arise of existing symptoms worsen. The Patient/Guardian is aware that this would apply to symptoms like: suicidal ideation, homicidal ideation, high risk behaviors, manic symptoms, psychotic symptoms, physical symptoms, or any other symptoms that may be dangerous to self or others. Greater than 50% of time spent on coordination and counseling where psychopharmacology as well as psychotherapeutic interventions were discussed along with review of treatments in the past. Education provided concerning need for adequate hydration. Patient/Guardian verbalized understanding of education, treatment plan and follow up. This session was completed telephonically with client/parental/guard tulio consent: Unable to determine movement status, assess appearance, affect, AIMS, or vital signs. 01/30/2025 Other Reasons, potential benefits, potential risks, interactions and side effects of all medications were discussed. The Patient/Guardian asked appropriate questions, appeared to understand the answers, and decided to accept the treatment and continue being followed. Alternatives and expected course without treatment were reviewed. The Patient/Guardian is aware of the need to contact the office or return for an earlier appointment if any problems or concerns arise. May also contact the 24-hour crisis hotline ([facility]), refer to the closest emergency room or call 911 if new symptoms arise of existing symptoms worsen. The Patient/Guardian is aware that this would apply to symptoms like: suicidal ideation, homicidal ideation, high risk behaviors, manic symptoms, psychotic symptoms, physical symptoms, or any other symptoms that may be dangerous to self or others. Greater than 50% of time spent on coordination and counseling where psychopharmacology as well as psychotherapeutic interventions were discussed along with review of treatments in the past. Education provided concerning need for adequate hydration. Patient/Guardian verbalized understanding of education, treatment plan and follow up. This session was completed telephonically with client/parental/guard tulio consent: Unable to determine movement status, assess appearance, affect, AIMS, or vital signs. 03/18/2025 Other Reasons, potential benefits, potential risks, interactions and side effects of all medications were discussed. The Patient/Guardian asked appropriate questions, appeared to understand the answers, and decided to accept the treatment and continue being followed. Alternatives and expected course without treatment were reviewed. The Patient/Guardian is aware of the need to contact the office or return for an earlier appointment if any problems or concerns arise. May also contact the 24-hour crisis hotline ([facility]), refer to the closest emergency room or call 911 if new symptoms arise of existing symptoms worsen. The Patient/Guardian is aware that this would apply to symptoms like: suicidal ideation, homicidal ideation, high risk behaviors, manic symptoms, psychotic symptoms, physical symptoms, or any other symptoms that may be dangerous to self or others. Greater than 50% of time spent on coordination and counseling where psychopharmacology as well as psychotherapeutic interventions were discussed along with review of treatments in the past. Education provided concerning need for adequate hydration. Patient/Guardian verbalized understanding of education, treatment plan and follow up. 04/11/2025 Other Reasons, potential benefits, potential risks, interactions and side effects of all medications were discussed. The Patient/Guardian asked appropriate questions, appeared to understand the answers, and decided to accept the treatment and continue being followed. Alternatives and expected course without treatment were reviewed. The Patient/Guardian is aware of the need to contact the office or return for an earlier appointment if any problems or concerns arise. May also contact the 24-hour crisis hotline ([facility]), refer to the closest emergency room or call 911 if new symptoms arise of existing symptoms worsen. The Patient/Guardian is aware that this would apply to symptoms like: suicidal ideation, homicidal ideation, high risk behaviors, manic symptoms, psychotic symptoms, physical symptoms, or any other symptoms that may be dangerous to self or others. Greater than 50% of time spent on coordination and counseling where psychopharmacology as well as psychotherapeutic interventions were discussed along with review of treatments in the past. Education provided concerning need for adequate hydration. Patient/Guardian verbalized understanding of education, treatment plan and follow up. This session was completed telephonically with client/parental/guard tulio consent: Unable to determine movement status, assess appearance, affect, AIMS, or vital signs. 04/29/2025 Other Declines crisis intervention, agrees to therapy referral which was placed today. Reasons, potential benefits, potential risks, interactions and side effects of all medications were discussed. The Patient/Guardian asked appropriate questions, appeared to understand the answers, and decided to accept the treatment and continue being followed. Alternatives and expected course without treatment were reviewed. The Patient/Guardian is aware of the need to contact the office or return for an earlier appointment if any problems or concerns arise. May also contact the 24-hour crisis hotline ([facility]), refer to the closest emergency room or call 911 if new symptoms arise of existing symptoms worsen. The Patient/Guardian is aware that this would apply to symptoms like: suicidal ideation, homicidal ideation, high risk behaviors, manic symptoms, psychotic symptoms, physical symptoms, or any other symptoms that may be dangerous to self or others. Greater than 50% of time spent on coordination and counseling where psychopharmacology as well as psychotherapeutic interventions were discussed along with review of treatments in the past. Education provided concerning need for adequate hydration. Patient/Guardian verbalized understanding of education, treatment plan and follow up. This session was completed telephonically with client/parental/guard tulio consent: Unable to determine movement status, assess appearance, affect, AIMS, or vital signs. Plan Of Treatment No Information Insurance Providers Payer Name Payer Address Payer Phone Subscriber Number Group Number Insured Name Patient Relationship to Insured Coverage Start Date Coverage End Date [employer] [address] [address] [place] [address] [id number] Gerald Loaiza Self - patient is the insured 4 MEDICAID [address] [facility] [place] [address] [id number] Gerald Loaiza Self - patient is the insured 5 Medical (General) History Medical History History ICD Code attention deficit hyperactivity disorder morbid obesity Asthma as a child Surgical History Surgery Date(Month/Year) tonsillectomy and adenoidectomy
--- OUTSIDE RECORDS SUMMARY | 2025-05-03 11:19 | XMS_ITS | Clinical Summary ---
Author Organization [facility] Address [address] [place] [address] Phone Care Team Providers Care Freight Elevator Erector Name Role Phone Saman Regan Primary Care Provider [phone] Allergies No known active allergies Medications Atomoxetine HCl 80 MG Capsule TK 1 C PO QD 04/14/2020 Active azelastine (ASTELIN) 0.1 % Solution U 2 SPRAYS IEN BID 04/14/2020 Active cyclobenzaprine (FLEXERIL) 5 MG Tablet Take 1 Tablet by mouth 3 times daily as needed for Muscle spasms. 15 Tablet 10/22/2021 Active Social History Tobacco Use Types Packs/Day Years Used Date Smoking Tobacco: Never Smokeless Tobacco: Never Sex and Gender Information Value Date Recorded Sex Assigned at Not on file Legal Sex Male 11:33 PM CDT Gender Identity Not on file Sexual Orientation Not on file Last Filed Vital Signs Vital Sign Reading Time Taken Comments Blood Pressure 143/89 10/22/2021 4:42 PM CDT Pulse 82 10/22/2021 4:42 PM CDT Temperature 36.9 C (98.4 F) 10/22/2021 4:42 PM CDT Respiratory Rate 16 10/22/2021 4:42 PM CDT Oxygen Saturation 95% 10/22/2021 4:42 PM CDT Inhaled Oxygen Concentration - - Weight 127 kg (280 lb) 10/22/2021 4:42 PM CDT Height 177.8 cm (5' 10) 10/22/2021 4:42 PM CDT Body Mass Index 40.18 10/22/2021 4:42 PM CDT Plan of Treatment Health Maintenance Due Date Last Done Comments Hepatitis C Virus (HCV) Screening 2000 Influenza Immunization (#1) 02/04/202504/07, 04/08/2021, 04/14/2020, Additional history exists SARS-COV-2 Immunization ( season) 2025 12/06/2021, 04/08/2021, 10/04/2020, Additional history exists Respiratory Syncytial Virus (RSV) Immunization (Adult) (1 - 1-dose 75+ series) 2075 Hepatitis B Immunization Completed 001, 2000, 2000 Pneumococcal Immunization Combined Aged Out 2000, 2000, 2000, Additional history exists No longer eligible based on patient's age to complete this topic Varicella Immunization Completed 11/05/2010, 2001 Meningococcal Immunization (ACWY) Completed 06/13/2017, 12/29/2011 Human Papillomavirus (HPV) Immunization Completed 01/30/2018, 09/02/2017, 06/13/2017 Meningococcal B Immunization Discontinued 01/30/2018, 06/13/2017 DTaP/Tdap/Td Immunization Discontinued 2020, 11/05/2010, 01/20/2006, Additional history exists TdaP Immunization Completed 04/27/2021, 11/05/2010 Rotavirus Immunization Aged Out No lo nger eligible based on patient's age to complete this topic Insurance [place] Care Teams Freight Elevator Erector Relationship Specialty Start Date End Date Saman Regan PAC [address] [place] [address] PCP - General Physician [employer] Superintendent 04/09/20
--- OUTSIDE RECORDS SUMMARY | 2025-05-03 11:19 | XMS_ITS | Clinical Summary ---
Author Organization [facility] Address [address] [place] [address] Care Team Providers Care Flex O Writer Operator Name Role Phone Saman Regan Primary Care Provider [phone] Source Comments [facility],non-[facility] Affiliates and Associated Physician Practices is amultiple site organization consisting of ambulatory clinics and hospital sitesin [place], [place], [place] and [place]. This disclosure is being madepursuant to the Care Everywhere program and may not contain all information available regarding this patient. Last updated 18.[facility] Social History Tobacco Use Types Packs/Day Years Used Date Smoking Tobacco: Never Smokeless Tobacco: Never Tobacco Cessation:Counseling Given: Not Answered Sex and Gender Information Value Date Recorded Sex Assigned at Male 06/11/2021 8:37 PM NON PROFIT DIRECTOR Legal Sex Male 6:48 AM NON PROFIT DIRECTOR Gender Identity Male 06/11/2021 8:37 PM NON PROFIT DIRECTOR Sexual Orientation [place] 06/11/2021 8: 37 PM NON PROFIT DIRECTOR Plan of Treatment Health Maintenance Due Date Last Done Comments HIV SCREENING 2015 HPV VACCINE (1 - Male 3-dose series) 2015 HEPATITIS C SCREENING 06/05/2018 DTAP/TDAP/TD VACCINES (1 - Tdap) 2019 HEPATITIS B VACCINE (1 of 3 - 19+ 3-dose series) 2019 DEPRESSION SCREENING 06/06/2024 COVID-19 VACCINE ( - season) 2025 12/06/2021, 04/08/2021, 10/04/2020, Additional history exists INFLUENZA VACCINE (#1) 2025 , 04/14/2020, 03/09/2018, Additional history exists ZOSTER VACCINE (1 of 2) 2050 HIB VACCINE Aged Out No longer eligi ble based on patient's age to complete this topic MENINGOCOCCAL (Group B) VACCINE SHARED DECISION-MAKING Aged Out No longer eligible based on patient's age to complete this topic MENINGOCOCCAL GROUPS A/C/Y/W VACCINE Aged Out No longer eligible based on patient's age to complete this topic PNEUMOCOCCAL VACCINE Aged Out No long er eligible based on patient's age to complete this topic Insurance (Work) [address] [place] [address] [facility] Care Teams Flex O Writer Operator Relationship Specialty Start Date End Date Saman Regan PA [address] [place] [address] PCP - General Physician Restaurant Associate 12/01/22
--- OUTSIDE RECORDS SUMMARY | 2025-05-03 11:19 | XMS_ITS | Clinical Summary ---
Author Organization [facility] Address [address] [place] [address] Care Team Providers Care Informatica Mdm Developer Name Role Phone Saman Regan Primary Care Provider [phone] Allergies No known active allergies Medications buPROPion XL (WELLBUTRIN XL) 450 mg 24 hr tablet Take 1 tablet (450 mg total) by mouth daily Active busPIRone (BUSPAR) 15 mg tablet Take 1 tablet (15 mg total) by mouth 3 (three) times a day Active lisdexamfetamin e (VYVANSE) 20 mg capsule Take 1 capsule (20 mg total) by mouth every morning Active lamoTRIgine (LaMICtal) 150 mg tablet Take 1 tablet (150 mg total) by mouth daily Active Active Problems Problem Noted Date Diagnosed Date Dehydration 01/22/2023 Tachycardia 01/22/2023 FEDERICO (acute kidney injury) 01/22/2023 ADHD 01/22/2023 Anxiety and depression 01/22/2023 Subclinical hypothyroidism 01/22/2023 Surgical History Surgery Date Site/Laterality Comments TONSILLECTOMY Medical History Medical History Date Comments Asthma ADHD (attention deficit hyperactivity disorder) Anxiety Depression Social History Tobacco Use Types Packs/Day Years Used Date Smoking Tobacco: Never Smokeless Tobacco: Never Tobacco Cessation:Counseling Given: Not Answered AUDIT-C Answer Date Recorded Q1: How often do you have a drink containing alc ohol? Monthly or less 01/22/2023 Q2: How many drinks containi ng alcohol do you have on a typical day when you are drinking? 1 or 2 01/22/2023 Q3: How often do you have si x or more drinks on one occasion? 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:59 PM STOCK CUTTER Gender Identity Not on file Sexual Orientation Not on file Last Filed Vital Signs Vital Sign Reading Time Taken Comments Blood Pressure 119/74 01/22/2023 11:00 AM CDT Pulse 79 01/22/2023 11:00 AM CDT Temperature 36.6 C (97.8 F) 01/22/2023 11:00 AM CDT Respiratory Rate 18 01/22/2023 11:00 AM CDT Oxygen Saturation 99% 01/22/2023 11:00 AM CDT Inhaled Oxygen Concentration - - Weight 108 kg (238 lb 1.6 oz) 01/22/2023 1:17 AM CDT Height 180.3 cm (5' 11) 01/22/2023 1:17 AM CDT Body Mass Index 33.21 01/22/2023 1:17 AM CDT Plan of Treatment Health Maintenance Due Date Last Done Comments Depression Screening 2000 Hepatitis C Screening 2000 Regular Well Visit/Exam 18-64 2018 Covid-19 Vaccine ( season) 2025 12/06/2021, 04/08/2021, 10/04/2020, Additional history exists Influenza Vaccine (#1) 2025 , 04/14/2020, 03/08/2018, Additional history exists DTaP/Tdap/Td Vaccine (8 - Td or Tdap) 04/27/2031 04/27/2021, 11/05/2010, 01/20/2006, Additional history exists Hepatitis B Screening Completed 2000 , 2000, 2000 Pneumococcal vaccine <65 Aged Out 001, 2000, 2000, Additional history exists No longer eligible based on patient's age to complete this topic Varicella Vaccines Completed 11/05/2010, 06/23/2001 HPV Vaccines Completed 01/30/2018, 08/06, 06/13/2017 Insurance [facility] [place] [address] [facility] [place] [address] Advance Directives For more information, please contact: [phone] * Full Code (Latest Code Status on File) Date Activated Date Inactivated Comments 01/22/2023 1:03 AM 01/22/2023 9:02 PM Care Teams Informatica Mdm Developer Relationship Specialty Start Date End Date Saman Regan PA [address] [place] [address] PCP - General 01/12/22
--- OUTSIDE RECORDS SUMMARY | 2025-05-03 11:23 | XMS_ITS | Data Portability ---
Author Organization [facility] Veronica [facility] Address [address] [place] [address] Care Team Providers Care Gandy Dancer Name Role Phone HAYLEE REGAN Primary Care Provider Assessment No assessment recorded. Plan of Treatment Reminders Order Date Submit Date Provider Last Modified By Organization Details Last Modified Time Details Appointments None recorded. Lab influenza virus A + B + SARS-CoV- 2 (COVID19) Ag panel, rapid IA, upper respirato ry specimen 2024 025 ann In-Office Order, Internal Use Only DO Not Attach Compendium DO Not Attach Compendium, Do Not Delete/merge, [id number] 18:08:59 rapid strep group A, throat 2024 025 ann In-Office Order, Internal Use Only DO Not Attach Compendium DO Not Attach Compendium, Do Not Delete/merge, [id number] 18:08:59 HBsAg (hepatiti s B surface Ag), EIA, serum 2024 025 [facility], [address] [facility], [facility], [place], [address], 5 10:28:00 lipid panel, serum 2024 025 [facility], [address] [facility], [facility], [place], [address], 10:27:56 CBC 2023 024 [facility], [address] [facility], [place], [address], 4 09:16:10 CMP, serum or plasma 2023 024 [facility], [address] [facility], [facility], [place], [address], 4 09:16:08 lipid panel, serum 2023 024 [facility], [address] [facility], [facility], [place], [address], 4 09:16:06 HbA1c (hemoglob in A1c), blood 2023 024 [facility] In-Office Order, Internal Use Only DO Not Attach Compendium DO Not Attach Compendium, Do Not Delete/merge, [id number] 4 15:19:34 vitamin D, 25-hydrox y, total, serum 2023 024 [facility], [address] [facility], [facility], [place], [address], 4 09:16:12 CBC 2022 023 [facility], [address] [facility], [facility], [place], [address], 3 10:14:14 CMP, serum or plasma 2022 023 [facility], [address] [facility] [place], [facility], [place], [address], 3 10:14:12 lipid panel, serum 2022 023 [facility], [address] [facility] [place], [facility], [place], [address], 3 10:14:11 TSH + free T4, serum 2022 023 [facility], [address] [facility] [place], [facility], [place], [address], 3 10:14:[address] referral 2023 024 [facility], [address] [place] [address], [address], 20:06:00 Procedures None recorded. Surgeries None recorded. Imaging None recorded. Medication Orders imiquimod 5 % topical cream packet 2022 023 [id number], [address] , [place], [place], [id number], 14:46:09 Patient TargetsNo targets recorded. Patient Instructions Encounter Date Encounter Id Patient Instructions Last Modified By Organization Details Last Modified Time 02/10/2023 [id number] A healthy lifestyle: care instructions jnanney Not available 02/10/2023 16:06:15 will return in 2 weeks for labs again.. jnanney Not available 02/10/2023 16:05:51 02/23/2023 [id number] A healthy lifestyle: care instructions jnanney Not available 02/23/2023 15:00:26 attention defici t hyperactivity disorder (ADHD) in adults: care instructions jnanney Not available 02/23/2023 15:00:09 11/10/2023 [id number] hearing loss: ca re instructions jnanney Not available 11/10/2023 15:19:39 A healthy lifestyle: care instructions jnanney Not available 11/10/2023 15:19:39 04/23/2024 [id number] When You Want to Lose Weight: Care Instructions jnanney Not available 04/23/2024 15:01:12 A healthy lifestyle: care instructions jnanney Not available 04/23/2024 15:01:12 attention defici t hyperactivity disorder (ADHD) in adults: care instructions jnanney Not available 04/23/2024 15:01:12 Reason for Referral [employer] Referral for Hea ring loss Referring Physician: Haylee Regan, Family Medicine, Encounter Date: 11/10/2023 Results Created Date Observation Date Name Description Value Unit Range Abnormal Flag Note LastModifiedBy Organization Detail LastModifiedTime 02/24/20 23 02/24/2023 TSH+F REE T4 TSH 0.719 uIU/m L 0.450- 4.500 Not Available [address], [address], 02/24/2023 10:14:09 02/24/20 23 02/24/2023 TSH+F REE T4 T4,free(dire ct) 1.47 NG/dL 0.82-1 .77 Not Available [address], [address], 02/24/2023 10:14:09 02/24/20 23 02/24/2023 LIPID PANEL cholesterol, total 139 mg/dL 100-19 9 Not Available [address], [address], 02/24/2023 10:14:11 02/24/20 23 02/24/2023 LIPID PANEL triglyceride s 120 mg/dL 0-149 Not Available [address], [address], 02/24/2023 10:14:11 02/24/20 23 02/24/2023 LIPID PANEL HDL cholesterol 36 mg/dL >39 below low normal Not Available [address], [address], 02/24/2023 10:14:11 02/24/20 23 02/24/2023 LIPID PANEL VLDL cholesterol jenny 22 mg/dL 5-40 Not Available [address], [address], 02/24/2023 10:14:11 02/24/20 23 02/24/2023 LIPID PANEL LDL chol calc ([facility]) 81 mg/dL 0-99 Not Available [address], [address], 02/24/2023 10:14:11 02/24/20 23 02/24/2023 COMP. METAB OLIC PANEL (14) glucose 97 mg/dL 70-99 Not Available [address], [address], 02/24/2023 10:14:12 02/24/20 23 02/24/2023 COMP. METAB OLIC PANEL (14) BUN 8 mg/dL 6-20 Not Available [address], [address], 02/24/2023 10:14:12 02/24/20 23 02/24/2023 COMP. METAB OLIC PANEL (14) creatinine 0.88 mg/dL 0.76-1 .27 Not Available [address], [address], 02/24/2023 10:14:12 02/24/20 23 02/24/2023 COMP. METAB OLIC PANEL (14) eGFR 125 mL/mi n/1.7 3 >59 Not Available [address], [address], 02/24/2023 10:14:12 02/24/20 23 02/24/2023 COMP. METAB OLIC PANEL (14) BUN/creatini ne ratio 9 9-20 Not Available [address], [address], 02/24/2023 10:14:12 02/24/20 23 02/24/2023 COMP. METAB OLIC PANEL (14) sodium 142 mmol/ L 134-14 4 Not Available [address], [address], 02/24/2023 10:14:12 02/24/20 23 02/24/2023 COMP. METAB OLIC PANEL (14) potassium 3.9 mmol/ L 3.5-5. 2 Not Available [address], [address], 02/24/2023 10:14:12 02/24/20 23 02/24/2023 COMP. METAB OLIC PANEL (14) chloride 105 mmol/ L 96-106 Not Available [address], [address], 02/24/2023 10:14:12 02/24/20 23 02/24/2023 COMP. METAB OLIC PANEL (14) carbon dioxide, total 24 mmol/ L 20-29 Not Available [address], [address], 02/24/2023 10:14:12 02/24/20 23 02/24/2023 COMP. METAB OLIC PANEL (14) calcium 10.2 mg/dL 8.7-10 .2 Not Available [address], [address], 02/24/2023 10:14:12 02/24/20 23 02/24/2023 COMP. METAB OLIC PANEL (14) protein, total 6.9 g/dL 6.0-8. 5 Not Available [address], [address], 02/24/2023 10:14:12 02/24/20 23 02/24/2023 COMP. METAB OLIC PANEL (14) albumin 5.1 g/dL 4.3-5. 2 Not Available [address], [address], 02/24/2023 10:14:12 02/24/20 23 02/24/2023 COMP. METAB OLIC PANEL (14) globulin, total 1.8 g/dL 1.5-4. 5 Not Available [address], [address], 02/24/2023 10:14:12 02/24/20 23 02/24/2023 COMP. METAB OLIC PANEL (14) A/G ratio 2.8 1.2-2. 2 above high normal Not Available [address], [address], 02/24/2023 10:14:12 02/24/20 23 02/24/2023 COMP. METAB OLIC PANEL (14) bilirubin, total 0.3 mg/dL 0.0-1. 2 Not Available [address], [address], 02/24/2023 10:14:12 02/24/20 23 02/24/2023 COMP. METAB OLIC PANEL (14) alkaline phosphatase 69 IU/L 44-121 Not Available [address], [address], 02/24/2023 10:14:12 02/24/20 23 02/24/2023 COMP. METAB OLIC PANEL (14) AST (SGOT) 16 IU/L 0-40 Not Available [address], [address], 02/24/2023 10:14:12 02/24/20 23 02/24/2023 COMP. METAB OLIC PANEL (14) ALT (SGPT) 18 IU/L 0-44 Not Available [address], [address], 02/24/2023 10:14:12 02/24/20 23 02/24/2023 CBC, PLATE LET, NO DIFFE RENTI AL WBC 5.8 x10e3 /uL 3.4-10 .8 Not Available [address], [address], 02/24/2023 10:14:13 02/24/2026 0202/24/2023 CBC, PLATE LET, NO DIFFE RENTI AL RBC 4.80 x10e6 /uL 4.14-5 .80 Not Available [address], [address], 02/24/2023 10:14:13 02/24/20 23 02/24/2023 CBC, PLATE LET, NO DIFFE RENTI AL hemoglobin 14.6 g/dL 13.0-1 7.7 Not Available [address], [address], 02/24/2023 10:14:13 02/24/2002/24/2023 CBC, PLATE LET, NO DIFFE RENTI AL hematocrit 42.8 % 37.5-5 1.0 Not Available [address], [address], 02/24/2023 10:14:13 02/24/2002/24/2023 CBC, PLATE LET, NO DIFFE RENTI AL MCV 89 fL 79-97 Not Available [address], [address], 02/24/2023 10:14:13 02/24/20 23 02/24/2023 CBC, PLATE LET, NO DIFFE RENTI AL MCH 30.4 pg 26.6-3 3.0 Not Available [address], [address], 02/24/2023 10:14:13 02/24/20 23 02/24/2023 CBC, PLATE LET, NO DIFFE RENTI AL MCHC 34.1 g/dL 31.5-3 5.7 Not Available [address], [address], 02/24/2023 10:14:13 02/24/20 23 02/24/2023 CBC, PLATE LET, NO DIFFE RENTI AL RDW 12.5 % 11.6-1 5.4 Not Available [facility] & [address], [address], 02/24/2023 10:14:13 02/24/20 23 02/24/2023 CBC, PLATE LET, NO DIFFE RENTI AL platelets 287 x10e3 /uL 150-45 0 Not Available [facility] & [address], [address], 02/24/2023 10:14:13 02/24/20 23 02/24/2023 CARDI OVASC ULAR REPOR T interpretati on Note Suppl miguel moore t is avail able. Not Available [facility] & [address], [address], 02/24/2023 10:14:13 02/24/20 23 02/24/2023 CARDI OVASC ULAR REPOR T pdf . Not Available [facility] & [address], [address], 02/24/2023 10:14:13 04/23/2004/24/2024 LIPID PANEL cholesterol, total 167 mg/dL 100-19 9 Not Available [facility] & [address], [address], 04/24/2024 09:16:06 04/23/20 24 04/24/2024 LIPID PANEL triglyceride s 45 mg/dL 0-149 Not Available [facility] & [address], [address], 04/24/2024 09:16:06 04/23/2004/24/2024 LIPID PANEL HDL cholesterol 40 mg/dL >39 Not Available [facility] & [address], [address], 04/24/2024 09:16:06 04/23/20 24 04/24/2024 LIPID PANEL VLDL cholesterol jenny 9 mg/dL 5-40 Not Available [address], [address], 04/24/2024 09:16:06 04/23/20 24 04/24/2024 LIPID PANEL LDL chol calc ([facility]) 118 mg/dL 0-99 above high normal Not Available [address], [address], 04/24/2024 09:16:06 04/23/20 24 04/24/2024 COMP. METAB OLIC PANEL (14) glucose 93 mg/dL 70-99 Not Available [address], [address], 04/24/2024 09:16:07 04/23/20 24 04/24/2024 COMP. METAB OLIC PANEL (14) BUN 13 mg/dL 6-20 Not Available [address], [address], 04/24/2024 09:16:07 04/23/20 24 04/24/2024 COMP. METAB OLIC PANEL (14) creatinine 0.92 mg/dL 0.76-1 .27 Not Available [address], [address], 04/24/2024 09:16:07 04/23/20 24 04/24/2024 COMP. METAB OLIC PANEL (14) eGFR 120 mL/mi n/1.7 3 >59 Not Available [address], [address], 04/24/2024 09:16:07 04/23/20 24 04/24/2024 COMP. METAB OLIC PANEL (14) BUN/creatini ne ratio 14 9-20 Not Available [address], [address], 04/24/2024 09:16:07 04/23/20 24 04/24/2024 COMP. METAB OLIC PANEL (14) sodium 142 mmol/ L 134-14 4 Not Available [address], [address], 04/24/2024 09:16:07 04/23/20 24 04/24/2024 COMP. METAB OLIC PANEL (14) potassium 4.4 mmol/ L 3.5-5. 2 Not Available [address], [address], 04/24/2024 09:16:07 04/23/20 24 04/24/2024 COMP. METAB OLIC PANEL (14) chloride 102 mmol/ L 96-106 Not Available [address], [address], 04/24/2024 09:16:07 04/23/20 24 04/24/2024 COMP. METAB OLIC PANEL (14) carbon dioxide, total 25 mmol/ L 20-29 Not Available [address], [address], 04/24/2024 09:16:07 04/23/20 24 04/24/2024 COMP. METAB OLIC PANEL (14) calcium 10.2 mg/dL 8.7-10 .2 Not Available [address], [address], 04/24/2024 09:16:07 04/23/20 24 04/24/2024 COMP. METAB OLIC PANEL (14) protein, total 7.1 g/dL 6.0-8. 5 Not Available [address], [address], 04/24/2024 09:16:07 04/23/20 24 04/24/2024 COMP. METAB OLIC PANEL (14) albumin 4.8 g/dL 4.3-5. 2 Not Available [address], [address], 04/24/2024 09:16:07 04/23/20 24 04/24/2024 COMP. METAB OLIC PANEL (14) globulin, total 2.3 g/dL 1.5-4. 5 Not Available [address], [address], 04/24/2024 09:16:07 04/23/20 24 04/24/2024 COMP. METAB OLIC PANEL (14) bilirubin, total 0.3 mg/dL 0.0-1. 2 Not Available [address], [address], 04/24/2024 09:16:07 04/23/20 24 04/24/2024 COMP. METAB OLIC PANEL (14) alkaline phosphatase 66 IU/L 44-121 Not Available [address], [address], 04/24/2024 09:16:07 04/23/20 24 04/24/2024 COMP. METAB OLIC PANEL (14) AST (SGOT) 19 IU/L 0-40 Not Available [address], [address], 04/24/2024 09:16:07 04/23/20 24 04/24/2024 COMP. METAB OLIC PANEL (14) ALT (SGPT) 25 IU/L 0-44 Not Available [address], [address], 04/24/2024 09:16:07 04/23/20 24 04/24/2024 CARDI OVASC ULAR REPOR T interpretati on Note Suppl miguel byrd is avail able. Not Available [address], [address], 04/24/2024 09:16:09 04/23/2004/24/2024 JASSON Moreno pdf . Not Available [address], [address], 04/24/2024 09:16:09 04/23/2004/24/2024 CBC, PLATE LET, NO DIFFE RENTI AL WBC 6.9 x10e3 /uL 3.4-10 .8 Not Available [address], [address], 04/24/2024 09:16:10 04/23/2004/24/2024 CBC, PLATE LET, NO DIFFE RENTI AL RBC 4.83 x10e6 /uL 4.14-5 .80 Not Available [address], [address], 04/24/2024 09:16:10 04/23/2004/24/2024 CBC, PLATE LET, NO DIFFE RENTI AL hemoglobin 14.6 g/dL 13.0-1 7.7 Not Available [address], [address], 04/24/2024 09:16:10 04/23/2004/24/2024 CBC, PLATE LET, NO DIFFE RENTI AL hematocrit 44.7 % 37.5-5 1.0 Not Available [address], [address], 04/24/2024 09:16:10 04/23/2004/24/2024 CBC, PLATE LET, NO DIFFE RENTI AL MCV 93 fL 79-97 Not Available [address], [address], 04/24/2024 09:16:10 04/23/2029 0404/24/2024 CBC, PLATE LET, NO DIFFE RENTI AL MCH 30.2 pg 26.6-3 3.0 Not Available [address], [address], 04/24/2024 09:16:10 04/23/20 24 04/24/2024 CBC, PLATE LET, NO DIFFE RENTI AL MCHC 32.7 g/dL 31.5-3 5.7 Not Available [address], [address], 04/24/2024 09:16:10 04/23/20 24 04/24/2024 CBC, PLATE LET, NO DIFFE RENTI AL RDW 12.7 % 11.6-1 5.4 Not Available [address], [address], 04/24/2024 09:16:10 04/23/20 24 04/24/2024 CBC, PLATE LET, NO DIFFE RENTI AL platelets 372 x10e3 /uL 150-45 0 Not Available [address], [address], 04/24/2024 09:16:10 04/23/20 24 04/24/2024 VITAM IN D, 25-HY DROXY vitamin D, 25-hydroxy 29.8 NG/mL 30.0-1 00.0 below low normal Vitam in D defic iency has been defin ed by the Insti tute of Medic ine and an Endoc rine Socie ty pract ice guide line as a level of serum 25-OH vitam in D less than 20 ng/mL (1,2) . The Endoc rine Socie ty went on to furth er defin e vitam in D insuf ficie ncy as a level betwe en 21 and 29 ng/mL (2). 1. IOM (Inst itute of Medic ine). 2010. Maciea ry refer ence los es for calci um and DSaad [place]: [facility] . 2. Zaria solitario [place], Hazel felder [place], Donna off-F errar i BRINK, et al. Evalu ation , treat ment, and preve ntion of vitam in D defic iency : an Endoc rine Socie ty clini jenny pract ice guide line. JCEM. 2010; 96(7) :1911 -30. Not Available [address], [address], 04/24/2024 09:16:12 04/23/20 24 04/23/2024 HbA1c (hemo globi n A1c), blood HbA1c 5.4 Not Available In-Office Order Internal Use Only DO Not Attach Compendium DO Not Attach Compendium, Do Not Delete/merge, [id number] 04/23/2024 15:00:04 10/04/19 25 10/05/2024 LIPID PANEL cholesterol, total 161 mg/dL 100-19 9 Not Available [address], [address], 10/05/2024 10:27:56 10/04/19 25 10/05/2024 LIPID PANEL triglyceride s 55 mg/dL 0-149 Not Available [address], [address], 10/05/2024 10:27:56 10/04/19 25 10/05/2024 LIPID PANEL HDL cholesterol 40 mg/dL >39 Not Available [facility] [address], [address], 10/05/2024 10:27:56 10/04/19 25 10/05/2024 LIPID PANEL VLDL cholesterol jenny 11 mg/dL 5-40 Not Available [address], [address], 10/05/2024 10:27:56 10/04/19 25 10/05/2024 LIPID PANEL LDL chol calc ([facility]) 110 mg/dL 0-99 above high normal Not Available [address], [address], 10/05/2024 10:27:56 10/04/19 25 10/05/2024 CARDI OVASC ULAR REPOR T interpretati on Note Suppl emjanice al repor t is avail able. Not Available [address], [address], 10/05/2024 10:27:58 10/04/19 25 10/05/2024 CARDI OVASC ULAR REPOR T pdf . Not Available [address], [address], 10/05/2024 10:27:58 10/04/19 25 10/05/2024 HBSAG SCREE N HBsAg screen NEGATI VE negati ve Not Available [address], [address], 10/05/2024 10:28:00 10/04/19 25 10/03/2024 rapid strep group A, throa t Strep negati ve Not Available In-Office Order Internal Use Only DO Not Attach Compendium DO Not Attach Compendium, Do Not Delete/merge, 10/03/2024 17:42:10 10/04/1910/03/2024 influ marifer virus A + B + SARS- CoV-2 (COVI D19) Ag panel , rapid IA, upper respi rator y speci men Flu A negati ve Not Available In-Office Order Internal Use Only DO Not Attach Compendium DO Not Attach Compendium, Do Not Delete/merge, 10/03/2024 17:42:02 10/04/1910/03/2024 influ marifer virus A + B + SARS- CoV-2 (COVI D19) Ag panel , rapid IA, upper respi rator y speci men Flu B negati ve Not Available In-Office Order Internal Use Only DO Not Attach Compendium DO Not Attach Compendium, Do Not Delete/merge, 10/03/2025 17:42:02 10/04/19 25 10/03/2024 influ marifer virus A + B + SARS- CoV-2 (COVI D19) Ag panel , rapid IA, upper respi rator y speci men Rapid SARS CoV 2 Ag, QL IA, respiratory specimen negati ve Not Available In-Office Order Internal Use Only DO Not Attach Compendium DO Not Attach Compendium, Do Not Delete/merge, [id number] 10/03/2024 17:42:02 04/13/20 24 04/13/2024 XR, chest No observ ation record ed. [facility] [address], [place], [address], 04/16/2024 08:58:28 Result Notes None recorded. Problems Name Problem SNOMED Code Status Onset Date Resolution Date Notes Provider Name and Address Organization Details Recorded Time Obesity 559111013 Active DANDRE [place], [place] - [facility] 17:38:50 Nasal discharge 41022643 Completed 01/30/2018 Jarret resendez, [place] - [facility] 8 15:17:02 Cellulitis 621632081 Completed 01/30/2018 Thomas resendez, [place] - [facility] 8 15:16:52 Impacted cerumen 21334945 Completed 01/30/2018 Jarret [place] [facility] 8 15:16:54 Acute otitis media 3289924 Completed 01/30/2018 Jarret [place] [facility] 8 15:16:55 Upper respiratory infection 20424117 Completed 01/30/2018 Jarret [place] [facility] 8 15:17:00 Pharyngitis 521493249 Completed 01/30/2018 Donn [place] - [facility] 8 15:16:58 Attention deficit hyperactivi ty disorder, predominant ly inattentive type 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 Procedures Surgical History Date Name Laterality Status Provider Name and Address Organization Details Recorded Time 1 Circumcision completed Carol Anguiano MA [place] - [facility] 01/30/2018 14:27:16 Imaging Results None recorded. Procedure Notes None recorded. Medical Equipment None Reported. Allergies Allergen ID Allergen Name Allergen Category Reaction Reaction Severity Criticality Documentation Date Start Date Code Code System Note Provider Name and Address Organization Details Recorded Time 18890714 aspartame food,medi cation headache Not available Not available 10/03/2024 49070 24 RxNorm DANDRE Mera, [place] - [facility] 17:49:03 Medications Name Sig Start Date Stop Date Status Note LastModified by Organization Details LastModified Time vitamin d 23665 unit caps 01/30 completed Not Available Not Available Not Available prevident 5000 plus 1.1 % crea 03/20 completed Not Available Not Available Not Available amoxicill in/clavul anate potassium 875-125 mg tabs 03/20 completed Not Available Not Available Not Available afluria quadrival ent 9826-7603 .5 ml adan 03/20 completed Not Available Not Available Not Available fluvirin 8693-3857 .5 ml adan 01/30 completed Not Available Not Available Not Available azithromy leland 250 mg tabs 02/21 completed Not Available Not Available Not Available fluticaso ne propionat e 50 mcg/act susp 03/20 completed Not Available Not Available Not Available quetiapin e 25 mg tablet TAKE 1 TABLET BY MOUTH EVERY DAY 08/24 completed Not Available Not Available Not Available fluoxetin e 40 mg capsule TAKE 1 CAPSULE BY MOUTH DAILY active Not Available Not Available No t Available lamotrigi ne 150 mg tablet TAKE 1 TABLET BY MOUTH DAILY 04/23 completed Not Available Not Available Not Available Augmentin 875 mg-125 mg tablet Take 1 tablet every 12 hours by oral route. 03/20 completed Not Available Not Available Not Available bupropion HCl SR 150 mg tablet,12 hr sustained -release TAKE 1 TABLET BY MOUTH TWICE DAILY 11/09 completed Not Available Not Available Not Available prednison e 10 mg tablet TAKE 6 TABLETS BY MOUTH DAILY X 1 DAY THEN DECREASE BY 1 TABLET BY MOUTH DAILY UNTIL ALL TAKEN 05/14 completed Not Available Not Available Not Available lamotrigi ne 200 mg tablet TAKE 1 TABLET BY MOUTH DAILY active Not Available Not Available No t Available Concerta 18 mg tablet,ex tended release TAKE 1 TABLET BY MOUTH DAILY IN THE MORNING. active Not Available Not Available No t Available azithromy leland 250 mg tablet FOLLOW PACKAGE DIRECTIO NS 05/14 completed Not Available Not Available Not Available methylphe nidate 10 mg tablet TAKE 1 TABLET BY MOUTH DAILY ON AN EMPTY STOMACH active Not Available Not Available No t Available dextroamp hetamine- amphetami ne 10 mg tablet TAKE 1 TABLET BY MOUTH TWICE DAILY 11/09 completed Not Available Not Available Not Available Tubersol 5 tub. unit/0.1 mL intraderm al injection solution Administ er .1ml interder camilla 08/24 completed Not Available Not Available Not Available propranol ol ER 60 mg capsule,2 4 hr,extend ed release TAKE 1 CAPSULE BY MOUTH DAILY active Not Available Not Available No t Available topiramat e 25 mg tablet TAKE 1 TABLET BY MOUTH DAILY active Not Available Not Available No t Available sulfameth oxazole 800 mg-trimet hoprim 160 mg tablet Take 1 tablet twice a day by oral route for 10 days. 01/30 completed Not Available Not Available Not Available lamotrigi ne 25 mg tablet TAKE 1 TABLET BY MOUTH EVERY DAY FOR 14 DAYS. INCREASE TO 2 TABLETS EVERY DAY 02/10 completed increase d to 100mg Not Available Not Available Not Available propranol ol 10 mg tablet TAKE 1 TABLET BY MOUTH TWICE DAILY 04/23 completed Not Available Not Available Not Available amoxicill in 875 mg tablet TAKE 1 TABLET BY MOUTH EVERY 12 HOURS 10/03 completed Not Available Not Available Not Available dextroamp hetamine- amphetami ne ER 20 mg 24hr capsule,e xtend release TAKE 1 CAPSULE BY MOUTH EVERY DAY 09/19 completed Not Available Not Available Not Available imiquimod 5 % topical cream packet APPLY TO THE AFFECTED AREA THREE TIMES PER WEEK DIRECTED 04/23 completed Not Available Not Available Not Available Concerta 54 mg tablet,ex tended release TAKE 1 TABLET BY MOUTH DAILY IN THE MORNING active Not Available Not Available No t Available buspirone 10 mg tablet TAKE 1 TABLET BY MOUTH THREE TIMES DAILY active Not Available Not Available No t Available dextroamp hetamine- amphetami ne 20 mg tablet TAKE 1 TABLET BY MOUTH TWICE DAILY. 11/09 completed Not Available Not Available Not Available Concerta 36 mg tablet,ex tended release TAKE 1 TABLET BY MOUTH DAILY IN THE MORNING 04/23 completed Not Available Not Available Not Available dextroamp hetamine- amphetami ne 15 mg tablet TAKE 1 TABLET BY MOUTH TWICE DAILY 11/09 completed Not Available Not Available Not Available hydroxyzi ne HCl 25 mg tablet TAKE 1 TABLET BY MOUTH TWICE DAILY NEEDED 10/03 completed Not Available Not Available Not Available ergocalci ferol (vitamin D2) 1,250 mcg (50,000 unit) capsule Take 1 capsule every week by oral route. 01/30 completed Not Available Not Available Not Available azelastin e 137 mcg (0.1 %) nasal spray U 2 SPRAYS IEN BID 07/18 completed Not Available Not Available Not Available methylpre dnisolone 4 mg tablets in a dose pack FOLLOW PACKAGE DIRECTIO NS 05/14 completed Not Available Not Available Not Available albuterol sulfate HFA 90 mcg/actua tion aerosol inhaler 04/24 completed Not Available Not Available Not Available PreviDent 5000 Plus 1.1 % cream active Not Available Not Available Not Available fluoxetin e 20 mg capsule TAKE 1 CAPSULE BY MOUTH DAILY active Not Available Not Available No t Available fluticaso ne propionat e 50 mcg/actua tion nasal spray,samia pension SHAKE LIQUID AND USE 1 SPRAY IN EACH NOSTRIL EVERY DAY 2024 active Not Available Not Available Not Avai lable sertralin e 50 mg tablet TAKE 1 AND 1/2 TABLETS BY MOUTH DAILY 04/23 completed Not Available Not Available Not Available lamotrigi ne 100 mg tablet TAKE 1 TABLET BY MOUTH ONCE DAILY active Not Available Not Available No t Available buspirone 15 mg tablet TAKE 1 TABLET BY MOUTH 2-3 TIMES A DAY active Not Available Not Available No t Available dextroamp hetamine- amphetami ne ER 25 mg 24hr capsule,e xtend release TAKE 1 CAPSULE BY MOUTH EVERY DAY 04/23 completed Not Available Not Available Not Available escitalop nicholas 10 mg tablet TAKE 1 AND 1/2 TABLETS BY MOUTH EVERY DAY. 06/06 /2024 completed Not Available Not Available Not Available cyclobenz aprine 5 mg tablet TAKE 1 TABLET BY MOUTH THREE TIMES DAILY NEEDED FOR MUSCLE SPASMS 12/02 completed Not Available Not Available Not Available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
[2025-05-03 11:24] VITALS: BP 119/63; PULSE 95; RESP 16; TEMP 37.4; O2SAT 100
--- NOTE | 2025-05-03 12:04 | ED_ITS ---
HPI - URI/Sore Throat General Chief Complaint: Upper Respiratory Infection Stated Complaint: flu symptoms Time Seen by Provider: 05/03/25 12:04 Source: patient Mode of arrival: ambulatory Limitations: no limitations History of Present Illness HPI Narrative: 24 yo M presents with c/o cough, congestion, fatigue, bodyaches, sore throat for less than 24 hours. Took one dose of nyquil last night. Denies nausea vomiting diarrhea. All systems reviewed and negative except as noted above. Related Data Home Medications ?Medication ?Instructions ?Recorded ?Confirmed ?Last Taken ?Type propranolol 60 mg capsule,24 mg PO 04/13/24 Unknown H istory hr,extended release brexpiprazole 2 mg tablet (Rexulti) mg 05/03/25 Unkno wn History bupropion HCl 300 mg 24 hr tablet, mg PO 05/03/25 Unk nown History extended release clonidine HCl 0.1 mg mg PO 05/03/25 Unknown Hist ory tablet,extended release,12 hr lisdexamfetamine 70 mg capsule mg 05/03/25 Unknown Hi story methylphenidate HCl 10 mg tablet mg 05/03/25 Unknown History topiramate 50 mg tablet mg 05/03/25 Unknown History vilazodone 10 mg tablet mg 05/03/25 Unknown History Allergies Allergy/AdvReac Type Severity Reaction Status Date / Time No Known Allergies Allergy Verified 05/03/25 11:33 [facility] Past Medical History Medical History ADHD (attention deficit hyperactivity disorder) Anxiety and depression Asthma as child Pre-diabetes Surgical History Surgical History Hx of tonsillectomy S/P wisdom tooth extraction Social History Social History Smoking status: Never smoker Alcohol intake: unknown Substance use type: does not use Living arrangements: with family Gender identity (if verbalized by the patient): Male Comments At time of signature, agree with nursing past medical, surgical, social and family history. There is no relevant family history pertinent to the presenting complaint. Exam Narrative: GENERAL: This is a well-nourished, well-developed patient, Ill-appearing but no acute distress HEAD: normocephalic, atraumatic. EYES: PERRL. Sclera clear/white. Vision is grossly intact. EARS: External ears normal, auditory canals clear and without drainage, TMs normal without perforation. Hearing grossly intact. NOSE: External nose normal with clear nasal drainage THROAT: Mucous membranes moist, posterior pharynx clear. NECK: Neck supple, non-tender without lymphadenopathy, masses or thyromegaly. CARDIOVASCULAR: Regular rate and rhythm without murmurs, gallops, or rubs. RESPIRATORY: Clear to auscultation. Breath sounds equal bilaterally. No wheezes, rales, or rhonchi. SKIN: warm, Dry, intact with no suspicious lesions or rash, good texture and turgor. NEURO: awake, alert, and oriented to person, place and time. There were no obvious focal neurologic abnormalities. EXTREMITIES: No joint tenderness, effusion, or edema noted. Course Course Level of Care: Express Care Visit Vital Signs Vital signs: Vital Signs Temperature 37.4 C 05/03/25 11:24 Pulse Rate 95 05/03/25 11:24 Respiratory Rate 16 05/03/25 11:24 Blood Pressure 119/63 05/03/25 11:24 Pulse Oximetry 100 05/03/25 11:24 Oxygen Delivery Room Air 05/03/25 11:24 Temperature 37.4 C 05/03/25 11:24 Pulse Rate 95 05/03/25 11:24 Respiratory Rate 16 05/03/25 11:24 Blood Pressure 119/63 05/03/25 11:24 Pulse Oximetry 100 05/03/25 11:24 Oxygen Delivery Room Air 05/03/25 11:24 reviewed MDM - URI/Sore Throat MDM Narrative Medical decision making narrative: negative COVID, influenza, strep. Strep culture ordered. Patient is well- appearing, nontoxic. Recommend [id number] medications to treat viral symptoms. Lungs clear to auscultation. Differential Diagnosis Differential diagnosis: Likely upper respiratory infection, sinusitis, viral infection, influenza and pharyngitis Discharge Plan Discharge Clinical Impression: Viral upper respiratory tract infection with cough Patient Disposition: Home Condition: Stable Instructions: Upper Respiratory Infection (ED) Additional Instructions: your COVID, influenza and strep test was negative today. A strep culture was ordered and results may take 48-72 hours. If your strep culture is positive we will call you at that time and prescribed an antibiotic. Take an [id number] medication to treat her symptoms such as DayQuil NyQuil cold and flu. Drink plenty of water and rest. See your doctor if not improving. Patient Language: Citizen Of [place] Prescriptions: No Action propranolol 60 mg capsule,extended release 24 hr PO methylphenidate HCl 10 mg tablet bupropion HCl 300 mg tablet extended release 24 hr PO topiramate 50 mg tablet lisdexamfetamine 70 mg capsule clonidine HCl 0.1 mg tablet extended release 12 hr PO vilazodone 10 mg tablet Rexulti 2 mg tablet Follow-up/Referrals: Shereen,BARBARA Daniels [Primary Care Provider] Stand Alone Forms: Work/School Release IP Time of Disposition: 12:17
[2025-05-03 12:14] LABS: EDINFLUASCREEN Negative (Negative); EDINFLUBSCREEN Negative (Negative); EDSTREPNEGPOS1 Negative (Negative)
== END 2025-05-03 12:28 | disposition home or self-care (01) ==
PROVIDERS: Emergency Provider Nurse Practitioner Family; PCP Physician Assistant
DX: J06.9 Acute upper respiratory infection, unspecified (principal); F90.9 Attention-deficit hyperactivity disorder, unspecified type; F41.9 Anxiety disorder, unspecified; F32.A Depression, unspecified; R73.03 Prediabetes
CPT/HCPCS: 87081; 87804; 87880; 99213; G0463